=== PATIENT | male | born 1945 | race Caucasian/White ===

== ENCOUNTER 2018-06-06 18:20 | Emergency (ER) | payer MEDICARE, OTHER ==
[2018-06-06] MEDS ORDERED: IPRATROPIUM/ALBUTEROL 3 ML NEB INH STA (19:53)
--- NOTE | 2018-06-06 19:53 | ED Physician Documentation ---
PD HPI CHEST PAIN - Stated complaint Stated Complaint: BODY ACHES - Chief complaint Chief Complaint: Abd Pain - History obtained from History obtained from: Patient - History of Present Illness Timing - onset: Other (He had a Crohn's flare for about 4 days that ended 2 days ago with vomiting and diarrhea. He did take a little bit of steroids and got better. Now for the last 2 days he has had a cough and shortness of breath as well as chest tightness. He thinks he might have pneumonia. He has had sweats but no fevers.) Review of Systems Constitutional: reports: Fatigue, Sweats. denies: Fever, Chills Nose: denies: Rhinorrhea / runny nose, Congestion Cardiac: denies: Chest pain / pressure, Palpitations Respiratory: reports: Dyspnea, Cough PD PAST MEDICAL HISTORY - Past Medical History Past Medical History: Yes GI: Crohn's disease - Past Surgical History Past Surgical History: Yes General: Other Cardiovascular: AAA, Other - Present Medications Home Medications: Ambulatory Orders Medication Instructions Recorded Confirmed Aspirin Chewable [[place] 1 tab PO DAILY 06/06/18 06/06/18 Aspirin] Doxycycline Hyclate 100 mg PO BID #20 capsule 06/06/18 Ferrous Sulfate 1 tab PO DAILY 06/06/18 06/06/18 Lisinopril/Hydrochlorothiazide 1 tab PO DAILY 06/06/18 06/06/18 [Lisinopril-Hctz 20-25 mg Tab] [place]-3/Dha/Epa/Fish Oil [Fish Oil 1 cap PO DAILY 06/06/18 06/06/18 1,000 mg Softgel] Potassium Chloride 10 meq PO DAILY #5 tablet.er 06/06/18 predniSONE [Prednisone] 1 - 2 tab PO DAILY PRN 06/06/18 06/06/18 - Allergies Allergies/Adverse Reactions: Allergies Allergy/AdvReac Type Severity Reaction Status Date / Time No Known Drug Allergies Allergy Verified 06/06/18 19:27 - Social History Does the pt smoke?: Yes Smoking Status: Current every day smoker Does the pt drink ETOH?: No Does the pt have substance abuse?: No - Immunizations Immunizations are current?: Yes - POLST Patient has POLST: Yes PD ED PE NORMAL - Vitals Vital signs reviewed: Yes - General General: Alert and oriented X 3, No acute distress - HEENT HEENT: PERRL, EOMI - Neck Neck: Supple, no meningeal sign, No bony TTP - Cardiac Cardiac: RRR, No murmur - Respiratory Respiratory: Other (Tight throughout but nonlabored) - Abdomen Abdomen: Non tender - Back Back: No CVA TTP, No spinal TTP - Extremities Extremities: No edema, No calf tenderness / cord - Neuro Neuro: Alert and oriented X 3, Normal speech Results - Vitals Vitals: Vital Signs - 24 hr 06/06/18 06/06/18 06/06/18 19:01 20:07 20:12 Temperature 36.4 C L Heart Rate 65 55 L 56 L Respiratory 18 16 16 Rate Blood Pressure 136/63 H 139/70 H O2 Saturation 98 100 06/06/18 20:20 Temperature Heart Rate 56 L Respiratory 15 Rate Blood Pressure O2 Saturation Oxygen O2 Source Room air - EKG (time done) 2002 Rate: Rate (enter#) (54) Rhythm: NSR [place]: Normal Intervals: LBBB (incomplete) Ischemia: Q waves (small inferior), Non specific changes Computer interpretation: Agree with computer - Labs Labs: Laboratory Tests 06/06/18 06/06/18 06/06/18 20:05 20:05 20:05 WBC 16.5 H RBC 3.70 L Hgb 11.6 L Hct 33.5 L MCV 90.4 MCH 31.4 H MCHC 34.8 RDW 13.7 Plt Count 383 MPV 7.4 Neut # (Auto) 13.0 H Lymph # (Auto) 2.1 [place] # (Auto) 1.1 H Eos # (Auto) 0.2 Baso # (Auto) 0.1 Absolute Nucleated RBC 0.00 Band Neuts % (Manual) Not Reportable Abnorm Lymph % (Manual) Not Reportable Nucleated RBC % 0.0 Neutrophils # (Manual) Not Reportable Lymphocytes # (Manual) Not Reportable Monocytes # (Manual) Not Reportable Eosinophils # (Manual) Not Reportable Basophils # (Manual) Not Reportable Differential Comment MANUAL=AUTO DIFF Manual Slide Review Indicated Platelet Estimate NORMAL (130-450,000) Platelet Morphology NORMAL APPEARANCE RBC Morph Micro Appear 1+ ANISOCYTOSIS Sodium 131 L Potassium 2.6 L Chloride 96 L Carbon Dioxide 25 Anion Gap 10.0 BUN 34 H Creatinine 1.7 H Estimated GFR (MDRD) 40 L Glucose 100 Calcium 8.4 L Total Bilirubin 0.6 AST 30 ALT 11 Alkaline Phosphatase 63 Troponin I < 0.04 Total Protein 7.9 Albumin 3.3 Globulin 4.6 H Albumin/Globulin Ratio 0.7 L Lipase 37 PD MEDICAL DECISION MAKING - ED course ED course: This is a 72-year-old gentleman with recent Crohn's flare now resolved who presents with nonproductive cough and chest tightness which on examination seems most consistent with a COPD exacerbation although he has no formal diagnosis of this. He would like to avoid steroids as he has been on steroids recently. He did clear up after a DuoNeb here. His white blood cell count is elevated which could be from the COPD exacerbation, the Crohn's flare, or the recent steroid use. He has a mild prerenal azotemia with hypokalemia. He is taking oral fl uids well here and was advised to push fluids for the next few days and he was given oral potassium here as well as a short prescription for set potassium supplementation. Departure - Departure Disposition: 01 Home, Self Care Clinical Impression: Dehydration, Bronchitis Acute Crohn's disease Qualifiers: Digestive disease complication type: without complication Qualified Code(s): K50.90 - Crohn's disease, unspecified, without complications Condition: Good Record reviewed to determine appropriate education?: Yes Instructions: Disease Crohn Dc, ED Bronchitis Asthmatic Prescriptions: Doxycycline Hyclate 100 mg PO BID #20 capsule Potassium Chloride 10 meq PO DAILY #5 tablet.er Comments: As discussed drink plenty of fluids. Follow-up with your physician in 2-3 days for recheck. Return for any new or worsening symptoms.
[2018-06-06 20:15] LABS: BASOPHILS # (AUTO) 0.1 10^3/uL (0.0-0.1); BASOPHILS % (AUTO) 0.5 %; EOSINOPHILS # (AUTO) 0.2 10^3/uL (0.0-0.7); EOSINOPHILS % (AUTO) 1.3 %; HGB - HEMOGLOBIN 11.6 g/dL (14.0-18.0); LYMPHOCYTES # (AUTO) 2.1 10^3/uL (1.5-3.5); LYMPHOCYTES % (AUTO) 12.6 %; MEAN CORPUSCULAR HEMOGLOBIN 31.4 pg (27.0-31.0); MEAN CORPUSCULAR HGB CONC 34.8 g/dL (32.0-36.0); MEAN CORPUSCULAR VOLUME 90.4 fL (80.0-94.0); MEAN PLATELET VOLUME 7.4 fL (7.4-11.4); MONOCYTES # (AUTO) 1.1 10^3/uL (0.0-1.0); MONOCYTES % (AUTO) 6.9 %; NEUTROPHILS % (AUTO) 78.7 %; PLT - PLATELET COUNT 383 10^3/uL (130-450); RED CELL DISTRIBUTION WIDTH 13.7 % (12.0-15.0); WHITE BLOOD COUNT 16.5 x10^3/uL (4.8-10.8)
[2018-06-06 20:23] LABS: ALBUMIN 3.3 g/dL (3.2-5.5); ALBUMIN/GLOBULIN RATIO 0.7 (1.0-2.2); BILIRUBIN,TOTAL 0.6 mg/dL (0.2-1.0); CALCIUM 8.4 mg/dL (8.5-10.3); CREATININE 1.7 mg/dL (0.6-1.2); TOTAL PROTEIN 7.9 g/dL (6.7-8.2)
[2018-06-06] MEDS ORDERED: POTASSIUM BICARB 25 MEQ TABLET PO STA (20:43)
[2018-06-06 20:52] LABS: PLATELET MORPHOLOGY NORMAL APPEARANCE (NORMAL); RBC MORPHOLOGY (MULTIPLE) 1+ ANISOCYTOSIS (NORMAL)
[2018-06-06 20:57] LABS: PLATELET ESTIMATE, MANUAL NORMAL (130-450,000) (NORMAL)
[2018-06-06 20:58] LABS: DIFFERENTIAL COMMENT MANUAL=AUTO DIFF
--- NOTE | 2018-06-06 20:59 | XRAY Report ---
Reason: cough chest tight Procedure Date: 06/06/2018 Accession Number: [id number] / [id number] Procedure: XR - Chest 2 View X-Ray CPT Code: 96447 FULL RESULT: EXAM: CHEST RADIOGRAPHY EXAM DATE: 06/06/2018 08:25 PM. CLINICAL HISTORY: Cough chest tight. COMPARISON: None. TECHNIQUE: 2 views. FINDINGS: Lungs/Pleura: No dense consolidation. No large effusion or pneumothorax. No pulmonary edema. Mediastinum: Heart and mediastinal contours are unremarkable. Other: None. IMPRESSION: No acute radiographic pulmonary abnormalities. RADIA
[2018-06-06] MEDS ORDERED: DOXYCYCLINE 100 MG TABLET PO STA (21:01)
[2018-06-06 21:12] VITALS: BP 101/55
== END 2018-06-06 21:11 | disposition home or self-care (01) ==
LOC: ED 18:20
DX: E86.0 Dehydration (principal); J40 Bronchitis, not specified as acute or chronic; K50.90 Crohn's disease, unspecified, without complications; D72.829 Elevated white blood cell count, unspecified; I44.7 Left bundle-branch block, unspecified; F17.200 Nicotine dependence, unspecified, uncomplicated; Z79.82 Long term (current) use of aspirin
CPT/HCPCS: 36415; 71046; 80053; 83690; 84484; 85025; 93005; 94640; 99283; 99284; A9270

== ENCOUNTER 2018-06-16 08:00 | Outpatient (CLI) | payer MEDICARE, OTHER ==
[2018-06-16 12:53] LABS: BASOPHILS # (AUTO) 0.1 10^3/uL (0.0-0.1); BASOPHILS % (AUTO) 0.5 %; EOSINOPHILS # (AUTO) 0.2 10^3/uL (0.0-0.7); EOSINOPHILS % (AUTO) 1.8 %; HGB - HEMOGLOBIN 10.7 g/dL (14.0-18.0); LYMPHOCYTES # (AUTO) 1.6 10^3/uL (1.5-3.5); LYMPHOCYTES % (AUTO) 15.2 %; MEAN CORPUSCULAR HEMOGLOBIN 31.5 pg (27.0-31.0); MEAN CORPUSCULAR HGB CONC 35.2 g/dL (32.0-36.0); MEAN CORPUSCULAR VOLUME 89.6 fL (80.0-94.0); MONOCYTES # (AUTO) 0.9 10^3/uL (0.0-1.0); MONOCYTES % (AUTO) 8.1 %; NEUTROPHILS % (AUTO) 74.4 %; PLT - PLATELET COUNT 355 10^3/uL (130-450); RED BLOOD COUNT 3.41 10^6/uL (4.70-6.10); RED CELL DISTRIBUTION WIDTH 14.3 % (12.0-15.0); WHITE BLOOD COUNT 10.8 x10^3/uL (4.8-10.8)
[2018-06-16 13:34] LABS: ALBUMIN 2.8 g/dL (3.2-5.5); ALBUMIN/GLOBULIN RATIO 0.8 (1.0-2.2); ALKALINE PHOSPHATASE 70 IU/L (42-121); ALT ALANINE AMINOTRANSFERASE < 10 IU/L (10-60); AST ASPARTATE AMINOTRANSFERASE 21 IU/L (10-42); BILIRUBIN,TOTAL 0.5 mg/dL (0.2-1.0); BUN - BLOOD UREA NITROGEN 18 mg/dL (6-20); CALCIUM 8.2 mg/dL (8.5-10.3); CARBON DIOXIDE - CO2 27 mmol/L (21-32); CHLORIDE 102 mmol/L (101-111); CREATININE 1.3 mg/dL (0.6-1.2); GFR - MDRD 54 (>89); GLUCOSE 94 mg/dL (70-100); SODIUM 137 mmol/L (135-145); TOTAL PROTEIN 6.5 g/dL (6.7-8.2)
== END 2018-06-16 23:59 | disposition home or self-care (01) ==
LOC: LAB.WCP 08:00
PROVIDERS: ATTEND Physician Assistant Medical
DX: I10 Essential (primary) hypertension (principal); D50.9 Iron deficiency anemia, unspecified
CPT/HCPCS: 36415; 80053; 85025

== ENCOUNTER 2018-08-04 08:00 | Outpatient (CLI) | payer MEDICARE, OTHER ==
[2018-08-04 19:14] LABS: CALCIUM 8.5 mg/dL (8.5-10.3); CREATININE 1.2 mg/dL (0.6-1.2)
== END 2018-08-04 23:59 ==
LOC: LAB.WCP 08:00
PROVIDERS: ATTEND Physician Assistant Medical
DX: E87.6 Hypokalemia (principal)
CPT/HCPCS: 36415; 80048

== ENCOUNTER 2018-09-12 08:00 | Outpatient (CLI) | payer MEDICARE, OTHER ==
[2018-09-12 19:44] LABS: CALCIUM 8.6 mg/dL (8.5-10.3); CREATININE 1.3 mg/dL (0.6-1.2)
== END 2018-09-12 23:59 | disposition home or self-care (01) ==
LOC: LAB.WCP 08:00
PROVIDERS: ATTEND Physician Assistant Medical
DX: E87.6 Hypokalemia (principal)
CPT/HCPCS: 36415; 80048

== ENCOUNTER 2019-07-11 05:19 | Emergency (ER) | payer MEDICARE, OTHER ==
[2019-07-11 05:29] VITALS: BP 138/61
== END 2019-07-11 05:29 | disposition left against medical advice (07) ==
LOC: ED 05:19
DX: Z53.21 Procedure and treatment not carried out due to patient leaving prior to being seen by health care provider (principal)

== ENCOUNTER 2019-07-27 07:43 | Outpatient (CLI) | payer MEDICARE, OTHER ==
--- NOTE | 2019-07-27 15:38 | XRAY Report ---
Reason: PNEUMONIA Procedure Date: 07/27/2019 Accession Number: [id number] / [id number] Procedure: WCP - Chest 2 View X-Ray CPT Code: 21600 Final Report FULL RESULT: EXAM: CHEST RADIOGRAPHY 2 VIEWS EXAM DATE: 07/27/2019. CLINICAL HISTORY: Pneumonia. Cough, congestion, wheezing and shortness of breath for 5 days. COMPARISON: PA and lateral chest 06/06/2018. TECHNIQUE: PA and lateral views. FINDINGS: Lungs/Pleura: Normal vasculature. The lungs are hyperinflated, greater than on the prior examination. Interstitial and alveolar infiltrate posterior in the inferior right lower lobe, and to a lesser extent in the medial inferior left lower lobe.. No pleural fluid or pneumothorax. Mediastinum: Normal cardiac and mediastinal contours. Atherosclerosis of the aorta. Bones: Flowing bridging osteophytes in the thoracic spine consistent with diffuse idiopathic skeletal hyperostosis. IMPRESSION: Right lower lobe and left lower lobe infiltrate consistent with pneumonia. Recommend follow-up chest radiography in 2-3 weeks. Pulmonary hyperinflation, greater than on 06/06/2018, most likely from bronchospasm. RADIA
== END 2019-07-27 23:59 | disposition home or self-care (01) ==
LOC: DI.WCP 07:43
PROVIDERS: ATTEND Physician Assistant Medical
DX: J18.9 Pneumonia, unspecified organism (principal)
CPT/HCPCS: 71046

== ENCOUNTER 2019-09-12 10:31 | Emergency (ER) | payer MEDICARE, OTHER ==
[2019-09-12 11:17] LABS: BASOPHILS % (AUTO) 0.5 %; EOSINOPHILS # (AUTO) 0.1 10^3/uL (0.0-0.7); EOSINOPHILS % (AUTO) 1.5 %; HGB - HEMOGLOBIN 8.9 g/dL (14.0-18.0); LYMPHOCYTES # (AUTO) 1.7 10^3/uL (1.5-3.5); MEAN CORPUSCULAR HEMOGLOBIN 29.1 pg (27.0-31.0); MEAN CORPUSCULAR HGB CONC 31.1 g/dL (32.0-36.0); MEAN CORPUSCULAR VOLUME 93.5 fL (80.0-94.0); MEAN PLATELET VOLUME 9.8 fL (7.4-11.4); MONOCYTES # (AUTO) 0.5 10^3/uL (0.0-1.0); MONOCYTES % (AUTO) 7.5 %; NEUTROPHILS # (AUTO) 3.9 10^3/uL (1.5-6.6); NEUTROPHILS % (AUTO) 63.2 %; PLT - PLATELET COUNT 315 10^3/uL (130-450); RED BLOOD COUNT 3.06 10^6/uL (4.70-6.10); RED CELL DISTRIBUTION WIDTH 14.6 % (12.0-15.0); WHITE BLOOD COUNT 6.1 x10^3/uL (4.8-10.8)
--- NOTE | 2019-09-12 11:19 | ED Physician Documentation ---
History of Present Illness - Stated complaint Stated Complaint: HIGH BP/SENT BY - Chief complaint Chief Complaint: General - History obtained from History obtained from: Patient - History of Present Illness Timing: Today - Additonal information Additional information: 74-year-old male who checks his blood pressure twice a day has had an elevated reading he called his doctor and discussed the findings with her and she recommended to come to the emergency department for evaluation. I have been able to talk to the patient's doctor in her interpretation of what the patient told her was that his heart rate was 175 and his blood pressure was 90 and she has prior experience with him having hypotension with pneumonia recently and she became quite concerned thought she might be in atrial fibrillation with rapid ventricular response and asked him to come to the emergency department. The patient states that he does not feel particularly poorly in any way and feels that he is resolved his pneumonia. Review of Systems Constitutional: denies: Fever, Chills, Myalgias Eyes: denies: Decreased vision Ears: denies: Ear pain Nose: denies: Rhinorrhea / runny nose, Congestion Throat: denies: Sore throat Cardiac: denies: Chest pain / pressure, Palpitations Respiratory: reports: Cough. denies: Dyspnea GI: denies: Abdominal Pain, Nausea, Vomiting : denies: Dysuria, Frequency PD PAST MEDICAL HISTORY - Past Medical History Cardiovascular: Hypertension, Coronary artery disease Respiratory: None Neuro: None Endocrine/Autoimmune: None GI: Crohn's disease : None HEENT: None Psych: None Musculoskeletal: None Derm: None - Past Surgical History Past Surgical History: Yes General: Other Cardiovascular: AAA, Other HEENT: Tonsil/Adenoidectomy - Present Medications Home Medications: Ambulatory Orders Medication Instructions Recorded Confirmed Aspirin Chewable [[place] 1 tab PO DAILY 06/06/18 09/12/19 Aspirin] Ferrous Sulfate 1 tab PO DAILY 06/06/18 09/12/19 [place]-3/Dha/Epa/Fish Oil [Fish Oil 1 cap PO DAILY 06/06/18 09/12/19 1,000 mg Softgel] Potassium Chloride 10 meq PO DAILY #5 tablet.er 06/06/18 09/12/19 predniSONE [Prednisone] 1 - 2 tab PO DAILY PRN 06/06/18 09/12/19 - Allergies Allergies/Adverse Reactions: Allergies Allergy/AdvReac Type Severity Reaction Status Date / Time No Known Drug Allergies Allergy Verified 09/12/19 10:39 - Social History Does the pt smoke?: Yes Smoking Status: Current every day smoker Does the pt drink ETOH?: No Does the pt have substance abuse?: No - Immunizations Immunizations are current?: Yes - POLST Patient has POLST: Yes PD ED PE NORMAL - Vitals Vital signs reviewed: Yes (hypertensive ) - General General: Alert and oriented X 3, No acute distress, Well developed/nourished - HEENT HEENT: Atraumatic, PERRL, EOMI - Neck Neck: Supple, no meningeal sign, No bony TTP - Cardiac Cardiac: RRR, No murmur - Respiratory Respiratory: No respiratory distress, Other (bibasilar wheezes clear with deep breathing) - Abdomen Abdomen: Soft, Non tender - Back Back: No CVA TTP, No spinal TTP - Derm Derm: Normal color, Warm and dry, No rash - Extremities Extremities: No deformity, No edema - Neuro Neuro: Alert and oriented X 3, hotel valet attendant 2-12 intact, No motor deficit, No sensory deficit, Normal speech Eye Opening: Spontaneous Motor: Obeys Commands Verbal: Oriented GCS Score: 15 - Psych Psych: Normal mood, Normal affect Results - Vitals Vitals: Vital Signs - 24 hr 09/12/19 09/12/19 09/12/19 10:39 10:51 11:19 Temperature 36.6 C Heart Rate 65 63 58 L Respiratory 18 20 16 Rate Blood Pressure 186/96 H 185/82 H 188/95 H O2 Saturation 100 99 99 09/12/19 09/12/19 12:12 12:36 Temperature 36.6 C Heart Rate 58 L 60 Respiratory 16 16 Rate Blood Pressure 170/84 H 180/74 H O2 Saturation 100 99 Oxygen O2 Source Room air - EKG (time done) 1041 Rate: Rate (enter#) (67) Rhythm: NSR Ischemia: Q waves Compare to prior EKG: Changed from prior EKG (SPT 06-06-2018 the lateral T wave flattening has resovled. ) Computer interpretation: Agree with computer - Labs Labs: Laboratory Tests 09/12/19 09/12/19 09/12/19 10:56 10:56 10:56 WBC 6.1 RBC 3.06 L Hgb 8.9 L Hct 28.6 L MCV 93.5 MCH 29.1 MCHC 31.1 L RDW 14.6 Plt Count 315 MPV 9.8 Neut # (Auto) 3.9 Lymph # (Auto) 1.7 [place] # (Auto) 0.5 Eos # (Auto) 0.1 Baso # (Auto) 0.0 Absolute Nucleated RBC 0.00 Nucleated RBC % 0.0 Sodium 139 Potassium 2.9 L Chloride 107 Carbon Dioxide 24 Anion Gap 8.0 BUN 13 Creatinine 1.2 Estimated GFR (MDRD) 59 L Glucose 101 H Calcium 8.1 L Total Bilirubin 0.4 AST 20 ALT < 10 L Alkaline Phosphatase 89 Troponin I High Sens 14.3 Total Protein 6.7 Albumin 3.0 L Globulin 3.7 Albumin/Globulin Ratio 0.8 L Lipase 28 - Rads (name of study) chest Radiology: Prelim report reviewed (Impression: 1. Normal lung volumes and heart size. 2 No evidence of focal infiltrate.3 Costophrenic sulcus blunting could represent small effusions. 4 There is no evidence of pneumothorax.), EMP read indepedently, See rad report Procedures - IVC sono (time) 1050 Bedside IVC sono: IVC measures (cm) (1.76), Euvolemia PD MEDICAL DECISION MAKING - ED course Complexity details: reviewed results, re-evaluated patient, considered differential, d/w patient, d/w field sales consultant (Chelita Dias concerned re: patient callled with heart rate of 175 and bp of 90. Has had recent pneumonia and had low blood pressure then ) ED course: 74-year-old male who is essentially asymptomatic with hypertension has come to the emergency department for evaluation of direction of his provider. There was a misunderstanding between the provider and the patient about why he was sent here provider thought he had rapid A. fib the patient had elevated blood pressure. The patient does acknowledge excessive salt intake and especially last night as well. So we discussed treatment of hypertension and the initial treatment to be done with lifestyle modification including reduction in salt intake and increasing activity as well as avoiding alcohol and tobacco. Departure - Departure Disposition: 01 Home, Self Care Clinical Impression: Hypokalemia Hypertension Qualifiers: Hypertension type: unspecified Qualified Code(s): I10 - Essential (primary) hypertension Condition: Stable Instructions: ED Hypertension Poss, ED Diet High Potassium Follow-Up: Chelita Dias PA-C [Primary Care Provider] - Comments: Today your blood pressure is elevated and the recommendation is to reduce the salt in your diet, increase your level of activity and avoid alcohol and tobacco. Follow-up with your primary care doctor for a blood pressure recheck in the next 2 weeks. If your blood pressure spike is due to a heavy salt load you should notice a decrease in your blood pressure over the next 3 to 4 days. Discharge Date/Time: 09/12/19 12:37
[2019-09-12 11:29] LABS: ALBUMIN/GLOBULIN RATIO 0.8 (1.0-2.2); ALKALINE PHOSPHATASE 89 IU/L (42-121); ALT ALANINE AMINOTRANSFERASE < 10 IU/L (10-60); AST ASPARTATE AMINOTRANSFERASE 20 IU/L (10-42); BILIRUBIN,TOTAL 0.4 mg/dL (0.2-1.0); BUN - BLOOD UREA NITROGEN 13 mg/dL (6-20); CALCIUM 8.1 mg/dL (8.5-10.3); CARBON DIOXIDE - CO2 24 mmol/L (21-32); CHLORIDE 107 mmol/L (101-111); CREATININE 1.2 mg/dL (0.6-1.2); GLUCOSE 101 mg/dL (70-100); LIPASE 28 U/L (22-51); SODIUM 139 mmol/L (135-145); TOTAL PROTEIN 6.7 g/dL (6.7-8.2)
--- NOTE | 2019-09-12 11:48 | XRAY Report ---
Reason: cough recent pneuonia Procedure Date: 09/12/2019 Accession Number: [id number] / [id number] Procedure: XR - Chest 2 View X-Ray CPT Code: 29470 Final Report FULL RESULT: EXAM: CHEST RADIOGRAPHY EXAM DATE: 09/12/2019 11:28 AM. CLINICAL HISTORY: Cough recent pneumonia. COMPARISON: CHEST 2 VIEW 07/27/2019 8:18 AM. TECHNIQUE: 2 views. FINDINGS: Lungs/Pleura: Lungs are well expanded. Interval decrease in opacity within the posterior chest. This suggests resolution of infiltrate. There is costophrenic sulcus blunting which may represent small effusions. There is no evidence of pneumothorax. Mediastinum: Heart and mediastinal contours are unremarkable. Other: None. IMPRESSION: 1. Normal lung volumes and heart size. 2. No evidence of focal infiltrate. 3. Costophrenic sulcus blunting could represent small effusions. 4. There is no evidence of pneumothorax. RADIA
[2019-09-12] MEDS ORDERED: POTASSIUM CHLORIDE 20 MEQ TABLET PO STA (12:00)
[2019-09-12 12:37] VITALS: BP 180/74
== END 2019-09-12 12:37 | disposition home or self-care (01) ==
LOC: ED 10:31
DX: I10 Essential (primary) hypertension (principal); E87.6 Hypokalemia; F17.200 Nicotine dependence, unspecified, uncomplicated
CPT/HCPCS: 36415; 71046; 80053; 83690; 84484; 85025; 93005; 99283; 99284; A9270

== ENCOUNTER 2019-09-21 14:43 | Outpatient (CLI) | payer MEDICARE, OTHER ==
--- NOTE | 2019-09-22 11:45 | Ultrasound Report ---
Reason: DYSPHAGIA Procedure Date: 09/21/2019 Accession Number: [id number] / [id number] Procedure: US - Head or Neck Soft Tissue CPT Code: Final Report FULL RESULT: EXAM: THYROID ULTRASOUND EXAM DATE: 09/21/2019 03:37 PM. CLINICAL HISTORY: Dysphagia. COMPARISON: None. TECHNIQUE: Real time sonographic imaging of the thyroid was performed by the assembly and packing supervisor. Multiple public utilities sales representative static images were saved for review. FINDINGS: THYROID GLAND: Right Lobe: 3.6 x 1.9 x 1.4 cm, volume 5 cc. Normal background echotexture. Right Lobe Nodules: None. Left Lobe: 2.9 x 1.2 x 1.4 cm, volume 2.5 cc. Normal background echotexture. Left Lobe Nodules: None. Isthmus: 0.3 cm AP. Normal background echotexture. Isthmic Nodules: None. LYMPH NODES: No adenopathy demonstrated in the central or lateral compartment. OTHER: None. IMPRESSION: Normal appearance of the thyroid parenchyma. No nodules identified. Management recommendations are based on 2015 [place] [employer] Management Guidelines for Adult Patients with Thyroid Nodules and Differentiated Thyroid Cancer. RADIA
== END 2019-09-21 14:44 | disposition home or self-care (01) ==
LOC: DI 14:43
PROVIDERS: ATTEND Physician Assistant Medical
DX: R13.10 Dysphagia, unspecified (principal)
CPT/HCPCS: 76536

== ENCOUNTER 2019-11-20 17:59 | Outpatient (CLI) | payer MEDICARE, OTHER | END 2019-11-20 18:00 | disposition critical access hospital (66) | LOC: EMS 17:59 | PROVIDERS: ATTEND Surgery | DX: S09.90XA Unspecified injury of head, initial encounter (principal); Y04.2XXA Assault by strike against or bumped into by another person, initial encounter; W18.39XA Other fall on same level, initial encounter; Y92.098 Other place in other non-institutional residence as the place of occurrence of the external cause | CPT/HCPCS: A0425; A0429 ==

== ENCOUNTER 2019-11-20 18:22 | Emergency (ER) | payer MEDICARE, OTHER ==
[2019-11-20] MEDS ORDERED: TETANUS/DIPHTHERIA/PERTUSSIS 0.5 ML SYRINGE IM ONE (18:28)
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
--- NOTE | 2019-11-20 19:18 | CT Report ---
PROCEDURE: HEAD WO INDICATIONS: head injury TECHNIQUE: Noncontrast 4.5 mm thick angled axial sections acquired from the foramen magnum to the vertex. For r adiation dose reduction, the following was used: automated exposure control, adjustment of mA and/or kV according to patient size. COMPARISON: None. FINDINGS: Image quality: Excellent. The ventricular system and cortical sulci demonstrate atrophy, consistent for patient's stated age. There are areas of hypodensity in the periventricular and subcortical white matter. There is no acut e intra or extra-axial fluid collection. No acute hemorrhage, mass lesion or midline shift. Brainst em is unremarkable. Globes are symmetrical. Sinuses are aerated. Osseous structures are intact. Right frontal scalp hemat valeriano is present. IMPRESSION: 1. No acute intracranial process. 2. Moderate atrophy and chronic microvascular ischemic changes. Reviewed by: Cecile Epps MD on 11/20/2019 7:16 PM PDT Approved by: Cecile Epps MD on 11/20/2019 7:16 PM PDT Station ID: [id number]
--- NOTE | 2019-11-20 19:19 | CT Report ---
PROCEDURE: CERVICAL SPINE WO INDICATIONS: head injury TECHNIQUE: Noncontrast 3 mm thick sections acquired from the skull base to the T4 level. Sagittal and coronal r eformats were then constructed. For radiation dose reduction, the following was used: automated exp osure control, adjustment of mA and/or kV according to patient size. COMPARISON: CT head 11/20/2019 FINDINGS: Image quality: Excellent. Bones: No fractures or dislocations. Visualized superior ribs are intact. Multilevel moderate to s evere degenerative changes most notable at C5-6. Soft tissues: Prevertebral soft tissues are normal in thickness. No paravertebral hematomas. No ap ical pneumothoraces. IMPRESSION: 1. No visualized fracture or dislocation. Reviewed by: Cecile Epps MD on 11/20/2019 7:18 PM PDT Approved by: Cecile Epps MD on 11/20/2019 7:18 PM PDT Station ID: [id number]
[2019-11-20 19:38] VITALS: BP 154/72
== END 2019-11-20 19:51 | disposition home or self-care (01) ==
LOC: EDUNIT# → ED 18:22
DX: S09.90XA Unspecified injury of head, initial encounter (principal); S00.81XA Abrasion of other part of head, initial encounter; Y04.2XXA Assault by strike against or bumped into by another person, initial encounter; Z23 Encounter for immunization; I10 Essential (primary) hypertension; M50.322 Other cervical disc degeneration at C5-C6 level; F17.200 Nicotine dependence, unspecified, uncomplicated; Z79.82 Long term (current) use of aspirin
CPT/HCPCS: 70450; 72125; 90471; 99282; 99284

== ENCOUNTER 2020-03-05 07:18 | Outpatient (CLI) | payer MEDICARE, OTHER ==
[2020-03-05 12:27] LABS: ALBUMIN 3.5 g/dL (3.2-5.5); ALBUMIN/GLOBULIN RATIO 0.9 (1.0-2.2); ALKALINE PHOSPHATASE 72 IU/L (42-121); ALT ALANINE AMINOTRANSFERASE < 10 IU/L (10-60); AST ASPARTATE AMINOTRANSFERASE 15 IU/L (10-42); BILIRUBIN,TOTAL 0.6 mg/dL (0.2-1.0); BUN - BLOOD UREA NITROGEN 20 mg/dL (6-20); CALCIUM 8.8 mg/dL (8.5-10.3); CARBON DIOXIDE - CO2 23 mmol/L (21-32); CHLORIDE 107 mmol/L (101-111); CHOL/HDL RATIO 4.8 (<5.0); CHOLESTEROL 144 mg/dL; CREATININE 1.3 mg/dL (0.6-1.2); GLUCOSE 91 mg/dL (70-100); HDL CHOLESTEROL 30 mg/dL; LDL CHOLESTEROL,CALCULATED 81 mg/dL; LDL/HDL RATIO 2.7 (<3.6); SODIUM 138 mmol/L (135-145); TOTAL PROTEIN 7.4 g/dL (6.7-8.2); VLDL CHOLESTEROL 33 mg/dL
[2020-03-05 12:31] LABS: BASOPHILS % (AUTO) 0.4 %; EOSINOPHILS # (AUTO) 0.1 10^3/uL (0.0-0.7); LYMPHOCYTES # (AUTO) 1.6 10^3/uL (1.5-3.5); LYMPHOCYTES % (AUTO) 14.7 %; MEAN CORPUSCULAR HEMOGLOBIN 30.7 pg (27.0-31.0); MEAN CORPUSCULAR HGB CONC 31.7 g/dL (32.0-36.0); MEAN CORPUSCULAR VOLUME 96.6 fL (80.0-94.0); MONOCYTES # (AUTO) 0.6 10^3/uL (0.0-1.0); MONOCYTES % (AUTO) 5.9 %; NEUTROPHILS # (AUTO) 8.3 10^3/uL (1.5-6.6); NEUTROPHILS % (AUTO) 77.3 %; PLT - PLATELET COUNT 343 10^3/uL (130-450); RED BLOOD COUNT 3.26 10^6/uL (4.70-6.10); RED CELL DISTRIBUTION WIDTH 15.3 % (12.0-15.0); WHITE BLOOD COUNT 10.8 x10^3/uL (4.8-10.8)
[2020-03-06 13:56] LABS: HEPATITIS C ANTIBODY NON-REACTIVE (NON-REACTIVE)
== END 2020-03-05 23:59 | disposition home or self-care (01) ==
LOC: LAB.WCP 07:18
PROVIDERS: ATTEND Physician Assistant Medical
DX: D50.9 Iron deficiency anemia, unspecified (principal); I25.10 Atherosclerotic heart disease of native coronary artery without angina pectoris; Z11.59 Encounter for screening for other viral diseases
CPT/HCPCS: 36415; 80053; 80061; 82728; 83721; 85025; 86803

== ENCOUNTER 2020-03-17 08:45 | Outpatient (CLI) | payer MEDICARE, OTHER ==
--- NOTE | 2020-03-17 17:01 | Ultrasound Report ---
PROCEDURE: Retroperitoneal Limited INDICATIONS: AAA, SMOKER TECHNIQUE: Real time scanning was performed of the aorta and iliac arteries, with image documentatio n. COMPARISON: Prior ultrasound, 08/21/2010, CT 01/17/2009 FINDINGS: Aorta: Proximal aortic diameter measures 2.7 x 2.6 cm, prior 2.6 x 2.6 centimeters. Mid-aorta measu res 3.3 x 4 cm, prior 2.6 x 2.7 cm. Distal aortic diameter is 3.4 x 3.5 cm, prior 3.2 x 2.7 cm. Iliac arteries: Right common iliac artery measures 1.7 x 1.5 cm, prior 1.3 x 1.3 cm. Left common il iac artery measures 1.7 x 1.4 cm, prior 1.4 x 1.5 cm. An aortobiiliac stent graft is seen. 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 Please consider a follow-up CT angiogram for further evaluation, assuming that there is no contraindi cation. Reviewed by: Nathan Reyes MD on 03/17/2020 3:59 PM [id number] Approved by: Nathan Reyes MD on 03/17/2020 3:59 PM MARIANNE Station ID: [id number]
== END 2020-03-17 08:46 | disposition home or self-care (01) ==
LOC: DI 08:45
PROVIDERS: ATTEND Physician Assistant Medical
DX: I71.4 Abdominal aortic aneurysm, without rupture (principal)
CPT/HCPCS: 76775

== ENCOUNTER 2020-10-10 08:00 | Outpatient (CLI) | payer MEDICARE, OTHER ==
[2020-10-10 12:09] LABS: BASOPHILS % (AUTO) 0.4 %; EOSINOPHILS # (AUTO) 0.2 10^3/uL (0.0-0.7); EOSINOPHILS % (AUTO) 2.3 %; HCT - HEMATOCRIT 32.8 % (42.0-52.0); HGB - HEMOGLOBIN 9.9 g/dL (14.0-18.0); LYMPHOCYTES # (AUTO) 1.5 10^3/uL (1.5-3.5); LYMPHOCYTES % (AUTO) 16.4 %; MEAN CORPUSCULAR HEMOGLOBIN 29.2 pg (27.0-31.0); MEAN CORPUSCULAR HGB CONC 30.2 g/dL (32.0-36.0); MEAN CORPUSCULAR VOLUME 96.8 fL (80.0-94.0); MEAN PLATELET VOLUME 9.8 fL (7.4-11.4); MONOCYTES # (AUTO) 0.7 10^3/uL (0.0-1.0); MONOCYTES % (AUTO) 7.8 %; NEUTROPHILS # (AUTO) 6.6 10^3/uL (1.5-6.6); NEUTROPHILS % (AUTO) 72.3 %; PLT - PLATELET COUNT 342 10^3/uL (130-450); RED BLOOD COUNT 3.39 10^6/uL (4.70-6.10); RED CELL DISTRIBUTION WIDTH 14.2 % (12.0-15.0); WHITE BLOOD COUNT 9.2 x10^3/uL (4.8-10.8)
[2020-10-10 12:31] LABS: ALBUMIN 3.6 g/dL (3.2-5.5); ALBUMIN/GLOBULIN RATIO 0.9 (1.0-2.2); ALKALINE PHOSPHATASE 88 IU/L (42-121); ALT ALANINE AMINOTRANSFERASE < 10 IU/L (10-60); AST ASPARTATE AMINOTRANSFERASE 16 IU/L (10-42); BILIRUBIN,TOTAL 0.5 mg/dL (0.2-1.0); BUN - BLOOD UREA NITROGEN 24 mg/dL (6-20); CALCIUM 8.7 mg/dL (8.5-10.3); CARBON DIOXIDE - CO2 19 mmol/L (21-32); CHLORIDE 98 mmol/L (101-111); CHOL/HDL RATIO 5.6 (<5.0); CHOLESTEROL 157 mg/dL; CREATININE 1.5 mg/dL (0.6-1.2); GFR - MDRD 46 (>89); GLUCOSE 101 mg/dL (70-100); HDL CHOLESTEROL 28 mg/dL; LDL CHOLESTEROL,CALCULATED 97 mg/dL; LDL/HDL RATIO 3.5 (<3.6); POTASSIUM 3.7 mmol/L (3.5-5.0); SODIUM 131 mmol/L (135-145); TOTAL PROTEIN 7.5 g/dL (6.7-8.2); TRIGLYCERIDES 158 mg/dL; VLDL CHOLESTEROL 32 mg/dL
== END 2020-10-10 23:59 | disposition home or self-care (01) ==
LOC: LAB.WCP 08:00
PROVIDERS: ATTEND Physician Assistant Medical
DX: E78.5 Hyperlipidemia, unspecified (principal); D50.9 Iron deficiency anemia, unspecified
CPT/HCPCS: 36415; 80053; 80061; 82728; 83721; 85025

== ENCOUNTER 2021-04-08 13:29 | Outpatient (CLI) | payer MEDICARE, OTHER ==
[2021-04-08 17:49] LABS: BASOPHILS # (AUTO) 0.1 10^3/uL (0.0-0.1); BASOPHILS % (AUTO) 0.6 %; EOSINOPHILS # (AUTO) 0.2 10^3/uL (0.0-0.7); EOSINOPHILS % (AUTO) 2.2 %; HCT - HEMATOCRIT 31.6 % (42.0-52.0); HGB - HEMOGLOBIN 10.1 g/dL (14.0-18.0); LYMPHOCYTES # (AUTO) 1.9 10^3/uL (1.5-3.5); LYMPHOCYTES % (AUTO) 19.4 %; MEAN CORPUSCULAR HEMOGLOBIN 30.5 pg (27.0-31.0); MEAN CORPUSCULAR VOLUME 95.5 fL (80.0-94.0); MEAN PLATELET VOLUME 10.1 fL (7.4-11.4); MONOCYTES # (AUTO) 0.8 10^3/uL (0.0-1.0); MONOCYTES % (AUTO) 7.7 %; NEUTROPHILS # (AUTO) 6.8 10^3/uL (1.5-6.6); NEUTROPHILS % (AUTO) 69.5 %; PLT - PLATELET COUNT 364 10^3/uL (130-450); RED BLOOD COUNT 3.31 10^6/uL (4.70-6.10); RED CELL DISTRIBUTION WIDTH 14.4 % (12.0-15.0); WHITE BLOOD COUNT 9.8 x10^3/uL (4.8-10.8)
[2021-04-08 18:06] LABS: CALCIUM 8.3 mg/dL (8.5-10.3); CREATININE 1.6 mg/dL (0.6-1.2)
== END 2021-04-08 23:59 | disposition home or self-care (01) ==
LOC: LAB.WCP 13:29
PROVIDERS: ATTEND Physician Assistant Medical
DX: I10 Essential (primary) hypertension (principal); D50.9 Iron deficiency anemia, unspecified
CPT/HCPCS: 36415; 80048; 82728; 85025

== ENCOUNTER 2021-05-13 10:23 | Outpatient (CLI) | payer MEDICARE, OTHER ==
[2021-05-13 18:24] LABS: CALCIUM 8.2 mg/dL (8.5-10.3); CREATININE 1.6 mg/dL (0.6-1.2); POTASSIUM 3.3 mmol/L (3.5-5.0)
== END 2021-05-13 23:59 | disposition home or self-care (01) ==
LOC: LAB.WCP 10:23
PROVIDERS: ATTEND Physician Assistant Medical
DX: E87.6 Hypokalemia (principal)
CPT/HCPCS: 36415; 80048

== ENCOUNTER 2022-08-27 10:55 | Outpatient (CLI) | payer MEDICARE, OTHER ==
[2022-08-27 18:03] LABS: BASOPHILS # (AUTO) 0.1 10^3/uL (0.0-0.1); BASOPHILS % (AUTO) 0.7 %; EOSINOPHILS # (AUTO) 0.3 10^3/uL (0.0-0.7); EOSINOPHILS % (AUTO) 3.2 %; HCT - HEMATOCRIT 36.8 % (42.0-52.0); HGB - HEMOGLOBIN 11.4 g/dL (14.0-18.0); LYMPHOCYTES # (AUTO) 1.8 10^3/uL (1.5-3.5); LYMPHOCYTES % (AUTO) 22.3 %; MEAN CORPUSCULAR VOLUME 93.6 fL (80.0-94.0); MEAN PLATELET VOLUME 9.6 fL (7.4-11.4); MONOCYTES # (AUTO) 0.7 10^3/uL (0.0-1.0); MONOCYTES % (AUTO) 8.5 %; NEUTROPHILS # (AUTO) 5.3 10^3/uL (1.5-6.6); NEUTROPHILS % (AUTO) 64.7 %; PLT - PLATELET COUNT 372 10^3/uL (130-450); RED BLOOD COUNT 3.93 10^6/uL (4.70-6.10); RED CELL DISTRIBUTION WIDTH 14.6 % (12.0-15.0); WHITE BLOOD COUNT 8.1 x10^3/uL (4.8-10.8)
[2022-08-27 18:22] LABS: ALBUMIN 3.3 g/dL (3.2-5.5); ALBUMIN/GLOBULIN RATIO 0.8 (1.0-2.2); ALKALINE PHOSPHATASE 92 IU/L (42-121); ALT ALANINE AMINOTRANSFERASE < 10 IU/L (10-60); AST ASPARTATE AMINOTRANSFERASE 19 IU/L (10-42); BILIRUBIN,TOTAL 0.3 mg/dL (0.2-1.0); BUN - BLOOD UREA NITROGEN 13 mg/dL (6-20); CALCIUM 8.4 mg/dL (8.5-10.3); CARBON DIOXIDE - CO2 28 mmol/L (21-32); CHLORIDE 107 mmol/L (101-111); CHOL/HDL RATIO 4.7 (<5.0); CHOLESTEROL 151 mg/dL; CREATININE 1.5 mg/dL (0.6-1.2); GFR - MDRD 45 (>89); GLUCOSE 112 mg/dL (70-100); HDL CHOLESTEROL 32 mg/dL; LDL CHOLESTEROL,CALCULATED 88 mg/dL; LDL/HDL RATIO 2.8 (<3.6); POTASSIUM 3.9 mmol/L (3.5-5.0); SODIUM 139 mmol/L (135-145); TOTAL PROTEIN 7.7 g/dL (6.7-8.2); TRIGLYCERIDES 154 mg/dL; VLDL CHOLESTEROL 31 mg/dL
== END 2022-08-27 10:56 | disposition home or self-care (01) ==
LOC: LAB.N 10:55
PROVIDERS: ATTEND Physician Assistant Medical
DX: E78.5 Hyperlipidemia, unspecified (principal); D50.9 Iron deficiency anemia, unspecified
CPT/HCPCS: 36415; 80053; 80061; 82728; 83721; 85025

== ENCOUNTER 2022-10-08 08:00 | Outpatient (CLI) | payer MEDICARE, OTHER | END 2022-10-08 23:59 | disposition home or self-care (01) | LOC: LAB.WCP 08:00 | PROVIDERS: ATTEND Family Medicine | DX: L03.90 Cellulitis, unspecified (principal) | CPT/HCPCS: 87070; 87077; 87101; 87205 ==

== ENCOUNTER 2022-10-08 10:52 | Outpatient (CLI) | payer MEDICARE, OTHER | END 2022-10-08 10:53 | disposition home or self-care (01) | LOC: DI 10:52 | PROVIDERS: ATTEND Family Medicine | DX: L03.90 Cellulitis, unspecified (principal) | CPT/HCPCS: 87070; 87077; 87101; 87205 ==

== ENCOUNTER 2023-02-03 07:59 | Outpatient (CLI) | payer MEDICARE, OTHER ==
[2023-02-03 12:04] LABS: BASOPHILS # (AUTO) 0.1 10^3/uL (0.0-0.1); BASOPHILS % (AUTO) 0.5 %; EOSINOPHILS # (AUTO) 0.2 10^3/uL (0.0-0.7); EOSINOPHILS % (AUTO) 1.8 %; HCT - HEMATOCRIT 33.2 % (42.0-52.0); HGB - HEMOGLOBIN 10.4 g/dL (14.0-18.0); LYMPHOCYTES # (AUTO) 1.7 10^3/uL (1.5-3.5); LYMPHOCYTES % (AUTO) 13.3 %; MEAN CORPUSCULAR HEMOGLOBIN 28.7 pg (27.0-31.0); MEAN CORPUSCULAR HGB CONC 31.3 g/dL (32.0-36.0); MEAN CORPUSCULAR VOLUME 91.7 fL (80.0-94.0); MEAN PLATELET VOLUME 9.8 fL (7.4-11.4); MONOCYTES # (AUTO) 0.5 10^3/uL (0.0-1.0); MONOCYTES % (AUTO) 4.2 %; NEUTROPHILS # (AUTO) 9.8 10^3/uL (1.5-6.6); NEUTROPHILS % (AUTO) 78.8 %; PLT - PLATELET COUNT 405 10^3/uL (130-450); RED BLOOD COUNT 3.62 10^6/uL (4.70-6.10); WHITE BLOOD COUNT 12.4 x10^3/uL (4.8-10.8)
[2023-02-03 12:35] LABS: ALBUMIN 2.8 g/dL (3.2-5.5); ALBUMIN/GLOBULIN RATIO 0.8 (1.0-2.2); BILIRUBIN,TOTAL 0.3 mg/dL (0.2-1.0); CALCIUM 7.8 mg/dL (8.5-10.3); CREATININE 1.7 mg/dL (0.6-1.3); CRP - C-REACTIVE PROTEIN 6.1 mg/dL (<0.5); POTASSIUM 2.8 mmol/L (3.5-4.5); TOTAL PROTEIN 6.5 g/dL (6.4-8.9)
== END 2023-02-03 08:00 | disposition home or self-care (01) ==
LOC: LAB.N 07:59
PROVIDERS: ATTEND Physician Assistant Medical
DX: K50.90 Crohn's disease, unspecified, without complications (principal); K92.1 Melena
CPT/HCPCS: 36415; 80053; 85025; 85651; 86140

== ENCOUNTER 2023-02-08 07:30 | Outpatient (CLI) | payer MEDICARE, OTHER ==
[2023-02-08 13:01] LABS: BASOPHILS % (AUTO) 0.2 %; EOSINOPHILS % (AUTO) 0.1 %; HCT - HEMATOCRIT 31.6 % (42.0-52.0); LYMPHOCYTES # (AUTO) 1.4 10^3/uL (1.5-3.5); LYMPHOCYTES % (AUTO) 9.6 %; MEAN CORPUSCULAR HGB CONC 31.6 g/dL (32.0-36.0); MEAN CORPUSCULAR VOLUME 91.6 fL (80.0-94.0); MONOCYTES # (AUTO) 0.8 10^3/uL (0.0-1.0); MONOCYTES % (AUTO) 5.5 %; NEUTROPHILS # (AUTO) 11.9 10^3/uL (1.5-6.6); PLT - PLATELET COUNT 454 10^3/uL (130-450); RED BLOOD COUNT 3.45 10^6/uL (4.70-6.10); WHITE BLOOD COUNT 14.2 x10^3/uL (4.8-10.8)
[2023-02-08 13:19] LABS: ALBUMIN 2.8 g/dL (3.2-5.5); ALBUMIN/GLOBULIN RATIO 0.8 (1.0-2.2); BILIRUBIN,TOTAL 0.2 mg/dL (0.2-1.0); CALCIUM 8.4 mg/dL (8.5-10.3); CREATININE 1.5 mg/dL (0.6-1.3); POTASSIUM 3.1 mmol/L (3.5-4.5); TOTAL PROTEIN 6.3 g/dL (6.4-8.9)
== END 2023-02-08 07:31 | disposition home or self-care (01) ==
LOC: LAB.N 07:30
PROVIDERS: ATTEND Physician Assistant Medical
DX: K50.90 Crohn's disease, unspecified, without complications (principal)
CPT/HCPCS: 36415; 80053; 85025

== ENCOUNTER 2023-09-10 02:00 | Outpatient (CLI) | payer MEDICARE, OTHER | END 2023-09-10 23:59 | disposition critical access hospital (66) | LOC: EMS 02:00 | DX: R06.02 Shortness of breath (principal); R05.9 Cough, unspecified; R09.3 Abnormal sputum | CPT/HCPCS: A0425; A0427 ==

== ENCOUNTER 2023-09-10 02:25 | Inpatient (IN) | payer MEDICARE, OTHER ==
[2023-09-10 02:47] LABS: BASOPHILS % (AUTO) 0.4 %; EOSINOPHILS % (AUTO) 0.3 %; HCT - HEMATOCRIT 31.9 % (42.0-52.0); HGB - HEMOGLOBIN 9.9 g/dL (14.0-18.0); LYMPHOCYTES % (AUTO) 8.4 %; MEAN CORPUSCULAR HEMOGLOBIN 27.3 pg (27.0-31.0); MEAN CORPUSCULAR VOLUME 87.9 fL (80.0-94.0); MEAN PLATELET VOLUME 8.9 fL (7.4-11.4); MONOCYTES % (AUTO) 2.7 %; NEUTROPHILS % (AUTO) 86.9 %; PLT - PLATELET COUNT 328 10^3/uL (130-450); RED BLOOD COUNT 3.63 10^6/uL (4.70-6.10); RED CELL DISTRIBUTION WIDTH 16.8 % (12.0-15.0); WHITE BLOOD COUNT 24.9 x10^3/uL (4.8-10.8)
[2023-09-10 02:49] LABS: ABNORMAL LYMPHS % (MANUAL) 0 %
[2023-09-10] MEDS: AMIODARONE 150 MG/100 ML 100 ML IV ONE ×2 (03:02→07:14)
--- NOTE | 2023-09-10 03:05 | ED Physician Documentation ---
History of Present Illness - Stated complaint Stated Complaint: COUGH - Chief complaint Chief Complaint: Resp - History obtained from History obtained from: Patient, EMS - Additonal information Additional information: 78-year-old man with past medical history of high blood pressure, atherosclerosis, smoker, presents with 2 3 days of cough with shortness of breath tonight. Patient received 5 of albuterol en route with minimal improvement in shortness of breath. He was 87% room air on scene initially. Patient denies chest pain, hemoptysis, leg swelling or calf pain. PD PAST MEDICAL HISTORY - Past Medical History Cardiovascular: Hypertension, Coronary artery disease Respiratory: None Neuro: None Endocrine/Autoimmune: None GI: Crohn's disease : None HEENT: None Psych: None Musculoskeletal: None Derm: None - Past Surgical History Past Surgical History: Yes General: Other Cardiovascular: AAA, Other HEENT: Tonsil/Adenoidectomy - Present Medications Home Medications: Ambulatory Orders Medication Instructions Recorded Confirmed Gabapentin [Neurontin] 100 mg PO TID PRN 09/10/23 09/10/23 Lisinopril/Hydrochlorothiazide 1 each PO DAILY 09/10/23 09/10/23 [Zestoretic 20-25 mg Tablet] Potassium Chloride 40 meq PO DAILY 09/10/23 09/10/23 azaTHIOprine [Imuran] 50 mg PO DAILY 09/10/23 09/10/23 - Allergies Allergies/Adverse Reactions: Allergies Allergy/AdvReac Type Severity Reaction Status Date / Time No Known Drug Allergies Allergy Verified 09/10/23 02:39 - Social History Does the pt smoke?: Yes Smoking Status: Current every day smoker Does the pt drink ETOH?: No Does the pt have substance abuse?: No - Immunizations Immunizations are current?: Yes - POLST Patient has POLST: Yes PD ED PE NORMAL - Vitals Vital signs reviewed: Yes - General General: Alert and oriented X 3, Other (Elderly appearing with increased work of breathing) - HEENT HEENT: Atraumatic, PERRL, EOMI, Moist mucous membranes, Pharynx benign - Neck Neck: Supple, no meningeal sign - Cardiac Cardiac: Other (Tachycardic rate, regular rhythm) - Respiratory Respiratory: Other (Coarse bilateral breath sounds) - Abdomen Abdomen: Non tender, Non distended - Derm Derm: Normal color, Warm and dry - Extremities Extremities: No deformity - Neuro Neuro: Alert and oriented X 3 - Psych Psych: Normal mood, Normal affect Results - Vitals Vitals: Vital Signs - 24 hr 09/10/23 02:29 Temperature 37.0 C Heart Rate 116 H Respiratory 25 H Rate Blood Pressure 131/68 H O2 Saturation 90 L Oxygen O2 Source Room air - EKG (time done) 0235 EKG releavant findings:: EKG personally interpreted by author of this note. Relevant findings are: Rate: Rate (enter#) (111) Rhythm: Sinus tachycardia 0252 EKG releavant findings:: EKG personally interpreted by author of this note. Relevant findings are: Rate: Rate (enter#) (219) Rhythm: V tach - Labs Labs: Laboratory Tests 09/10/23 09/10/23 02:41 02:41 WBC 24.9 H RBC 3.63 L Hgb 9.9 L Hct 31.9 L MCV 87.9 MCH 27.3 MCHC 31.0 L RDW 16.8 H Plt Count 328 MPV 8.9 Neut # (Auto) Not Reportable Lymph # (Auto) Not Reportable [place] # (Auto) Not Reportable Eos # (Auto) Not Reportable Baso # (Auto) Not Reportable Absolute Nucleated RBC Not Reportable Total Counted 100 Band Neuts % (Manual) 10 Abnorm Lymph % (Manual) 0 Nucleated RBC % Not Reportable Neutrophils # (Manual) 22.9 H Lymphocytes # (Manual) 1.7 Monocytes # (Manual) 0.2 Eosinophils # (Manual) 0.0 Basophils # (Manual) 0.0 Differential Comment MANUAL DIFFERENTIAL Platelet Estimate NORMAL (130-450,000) RBC Morph Micro Appear NORMAL APPEARANCE Sodium 134 L Potassium 3.4 L Chloride 107 Carbon Dioxide 20 L Anion Gap 7.0 BUN 20 Creatinine 1.4 H Estimated GFR (MDRD) 49 L Glucose 121 H Calcium 8.8 Total Bilirubin 0.5 AST 21 ALT 7 L Alkaline Phosphatase 81 Total Protein 6.5 Albumin 2.7 L Globulin 3.8 Albumin/Globulin Ratio 0.7 L Lipase < 10 L PD Medical Decision Making - ED course ED course: 78-year-old man presents with shortness of breath for the past 2 to 3 days with associated cough. Patient is hypoxic, tachycardic, tachypneic with increased work of breathing on arrival and has intermittent episodes of nonsustained V. tach on the monitoring coordinator. Upon discussing goals of care patient is adamant he would like to allow natural when his time comes and would like to be DNR/DNI with selective treatment only. POLST form filled out and signed. Refused bipap and facemask but consented to nasal cannula and medications. Plan to administer amiodarone and BS antibiotics for presumed sepsis complicated by nonsustained V. tach. CBC, abdominal panel, lactic acid, VBG, RVP, blood cultures, chest x-ray ordered. EKG initially shows sinus tachycardia and second EKG was able to capture ns V. tach. will continue to monitor and give pain meds as needed with goal of treating selectively to maximize his comfort. WBC 24.9 - profound leukocytosis. patient has stable anemia and ckd on labs. plan to admit pending cxr. Departure - Departure Clinical Impression: Nonsustained ventricular tachycardia, Shortness of breath, Hypoxia Forms: PCP List
[2023-09-10 03:06] LABS: ALBUMIN 2.7 g/dL (3.2-5.5); ALBUMIN/GLOBULIN RATIO 0.7 (1.0-2.2); ALKALINE PHOSPHATASE 81 IU/L (42-121); ALT ALANINE AMINOTRANSFERASE 7 IU/L (10-60); AST ASPARTATE AMINOTRANSFERASE 21 IU/L (10-42); BILIRUBIN,TOTAL 0.5 mg/dL (0.2-1.0); BUN - BLOOD UREA NITROGEN 20 mg/dL (6-20); CALCIUM 8.8 mg/dL (8.5-10.3); CARBON DIOXIDE - CO2 20 mmol/L (21-32); CHLORIDE 107 mmol/L (101-111); CREATININE 1.4 mg/dL (0.6-1.3); GFR - MDRD 49 (>89); GLUCOSE 121 mg/dL (74-104); LIPASE < 10 U/L (11-82); POTASSIUM 3.4 mmol/L (3.5-4.5); SODIUM 134 mmol/L (135-145); TOTAL PROTEIN 6.5 g/dL (6.4-8.9)
[2023-09-10 03:10] LABS: BAND NEUTROPHILS % (MANUAL) 10 %; LYMPHOCYTES # (MANUAL) 1.7 10^3/uL (1.5-3.5); LYMPHOCYTES % (MANUAL) 7 %; MONOCYTES # (MANUAL) 0.2 10^3/uL (0.0-1.0); NEUTROPHILS # (MANUAL) 22.9 10^3/uL (1.5-6.6)
[2023-09-10 03:11] LABS: DIFFERENTIAL COMMENT MANUAL DIFFERENTIAL; PLATELET ESTIMATE, MANUAL NORMAL (130-450,000) (NORMAL); RBC MORPHOLOGY (MULTIPLE) NORMAL APPEARANCE (NORMAL)
[2023-09-10] MEDS ORDERED: VANCOMYCIN 1 GM VIAL ONE (03:18)
[2023-09-10] MEDS: PIPERACILLIN/TAZOBACTAM 3.375 GM in SODIUM CHLORIDE 0.9% MINIBAG 100 ML IV STA (03:22)
[2023-09-10] MEDS: VANCOMYCIN INJ 1.25 GM in SODIUM CHLORIDE 0.9% 250 ML IV STA (03:25)
[2023-09-10] MEDS: AMIODARONE 360 MG/200 ML 200 ML IV ONE (04:01)
[2023-09-10 04:06] LABS: VBG BASE EXCESS -6.1 mmol/L (-2 - +2); VBG HCO3 19.5 mmol/L (23-28); VBG OXYGEN SATURATION 76.7 % (60-80); VBG PCO2 38.8 mmHg (41-51); VBG PH 7.319 (7.31-7.41); VBG PO2 45.6 mmHg (25-47); VBG TOTAL CO2 20.7 mmol/L (24-29)
[2023-09-10 04:14] LABS: LACTIC ACID, VENOUS 2.4 mmol/L (0.5-2.2)
[2023-09-10] MEDS ORDERED: SODIUM CHLORIDE FLUSH 0.9% 10 ML SYRINGE IVP PRN (04:47)
[2023-09-10] MEDS ORDERED: ONDANSETRON 4 MG/2 ML VIAL IVP PRN (04:47)
[2023-09-10] MEDS ORDERED: PROCHLORPERAZINE 10 MG/2 ML VIAL IVP PRN (04:47)
[2023-09-10] MEDS ORDERED: ACETAMINOPHEN 325 MG TABLET PO PRN (04:47)
[2023-09-10 04:52] LABS: B. PARAPERTUSSIS- RESP PCR PAN NOT DETECTED; CORONAVIRUS 229E-RESP PCR NOT DETECTED; CORONAVIRUS HKU1-RESP PCR NOT DETECTED; CORONAVIRUS NL63-RESP PCR NOT DETECTED; CORONAVIRUS OC43-RESP PCR NOT DETECTED; HUMAN METAPNEUMOVIRUS NOT DETECTED; INFLUENZA A- RESP PCR PANEL NOT DETECTED; INFLUENZA B - RESP PCR PANEL NOT DETECTED; PARAINFLUENZA VIRUS 1 NOT DETECTED; PARAINFLUENZA VIRUS 2 NOT DETECTED; PARAINFLUENZA VIRUS 3 NOT DETECTED; PARAINFLUENZA VIRUS 4 NOT DETECTED; RHINOVIRUS/ENTEROVIRUS DETECTED; RSV- RESP PCR PANEL NOT DETECTED; SARS-CoV-2 -RESP PCR PANEL NOT DETECTED
[2023-09-10 04:53] LABS: B. PERTUSSIS- RESP PCR PANEL NOT DETECTED; C. PNEUMONIAE- RESP PCR PANEL NOT DETECTED; M. PNEUMONIAE- RESP PCR PANEL NOT DETECTED
[2023-09-10] MEDS ORDERED: POTASSIUM CHLORIDE INJ 40 MEQ in SODIUM CHLORIDE 0.9% 500 ML IV ONE (04:53)
[2023-09-10] MEDS ORDERED: hydrALAZINE INJ 20 MG/ML VIAL IVP PRN (05:03)
--- NOTE | 2023-09-10 05:23 | HISTORY & PHYSICAL EXAMINATION ---
Chief Complaint - Chief Complaint Chief Complaint: SOB History of Present Illness - Admitted From Admitted From:: ED - History Obtained From Records Reviewed: EMR History obtained from: Patient & ED staff Exam Limitations: Tele medicine - History of Present Illness HPI Comment/Other: 78M c tobacco abuse, COPD, hypertension p/w SOB for the past couple of days. Patient is alert and oriented. He has capacity to make decisions. Patient was reluctant in coming into the hospital and had initially declined hospitalization. He reports not on oxygen at home. No recent fever. No chest pain. He developed sudden SOB x 2 days. He lives with Clint. He has not living family members. Clint called EMS because patient could not breathe. Patient was brought into the ED and noted hypoxemic. He was test positive for viral URI. CXR did not show overt infiltrate but noted emphysematous changes. He was given abx. He was noted runs of NSVT. Patient declined any life saving measures. He did not want cardioversion. No intubation. Patient states he still smokes tobacco. History - Past Medical History Cardiovascular: reports: Hypertension, Coronary artery disease Respiratory: reports: None Neuro: reports: None Endocrine/Autoimmune: reports: None GI: reports: Crohn's disease : reports: None HEENT: reports: None Psych: reports: None Musculoskeletal: reports: None Derm: reports: None MRSA Hx?: No - Past Surgical History General: reports: Other Cardiovascular: reports: AAA, Other HEENT: reports: Tonsil/Adenoidectomy - POLST Patient has POLST: Yes Meds/Allgy - Home Medications Home Medications: Ambulatory Orders Medication Instructions Recorded Confirmed Gabapentin [Neurontin] 100 mg PO TID PRN 09/10/23 09/10/23 Lisinopril/Hydrochlorothiazide 1 each PO DAILY 09/10/23 09/10/23 [Zestoretic 20-25 mg Tablet] Potassium Chloride 40 meq PO DAILY 09/10/23 09/10/23 azaTHIOprine [Imuran] 50 mg PO DAILY 09/10/23 09/10/23 - Allergies Allergies/Adverse Reactions: Allergies Allergy/AdvReac Type Severity Reaction Status Date / Time No Known Drug Allergies Allergy Verified 09/10/23 02:39 Review of Systems - Constitutional Constitutional: denies: Fever - Cardiovascular Cariovascular: denies: Palpitations, Chest pain - Respiratory Respiratory: reports: Cough, SOB at rest Exam - Vital Signs Vital Signs: Vital Signs x48h Temp Pulse Resp BP Pulse Ox O2 Flow Rate 09/10/23 04:45 97 4 09/10/23 04:38 89 28 H 91 L 09/10/23 04:30 83 26 H 102/68 98 09/10/23 04:20 84 28 H 98 09/10/23 04:10 86 09/10/23 04:00 90 25 H 99/80 93 4 09/10/23 03:19 94 27 H 111/57 L 92 4 09/10/23 03:00 109 H 29 H 108/94 H 95 4 09/10/23 02:29 37.0 C 116 H 25 H 131/68 H 90 L - Physical Exam General Appearance: positive: Alert, Mild distress Eyes Bilateral: positive: Normal inspection ENT: positive: ENT inspection nml Neck: positive: Nml inspection Cardiovascular: positive: Tachycardia Back: positive: Nml inspection Skin: positive: Color nml Neurologic/Psychiatric: positive: Oriented x3, CN's nml (2-12), Motor nml Conclusion/Plan - Problem List (1) COPD exacerbation Conclusion/Plan: 2/2 tobacco abuse. nicotine patch for smoking cessation. breathing treatment. O2 support. prednisone. abx. followup on cultures and labs studies. DNR/DNI. (2) Acute hypoxemic respiratory failure Conclusion/Plan: 2/2 COPD exacerbation and ongoing tobacco abuse. recommend stop smoking. breathing treatment. prednisone. abx. O2 support. (3) Nonsustained ventricular tachycardia Conclusion/Plan: unclear trigger. possible copd exacerbation triggering arrhythmia. will replete K and Mg. will add amiodarone gtt for NSVT. followup echo and troponin and BNP for acs evaluation. followup on repeat electrolyte and mg levels. monitor on tele. DNR/DNI. no cardioversion per patient. (4) CKD (chronic kidney disease) stage 3, GFR 30-59 ml/min Conclusion/Plan: stable renal function compared to prior levels. avoid nephrotoxins. monitor renal function c repeat bmp Qualifiers: Chronic kidney disease stage 3 subtype: stage 3a (GFR 45-59) Qualified Code(s): N18.31 - Chronic kidney disease, stage 3a (5) Hypertension Conclusion/Plan: controlled. hold home antihypertensive 2/2 low K and NSVT. will manage hypertension with prn hydralazine instead. monitor bp with repeat vital checks Qualifiers: Hypertension type: primary hypertension Qualified Code(s): I10 - Essential (primary) hypertension (6) Chronic anemia Conclusion/Plan: stable hgb&hct. no report of acute bleed. monitor c repeat cbc (7) Crohn disease Conclusion/Plan: stable. no acute flare on presentation. noted on Imuran. no GI sxs reported. holding Imuran 2/2 acute infection + no flare + start prednisone for CODP exacerbation. monitor and intervene further as needed. - Lab Results Lab results reviewed: Yes Fish Bones: 09/10/23 02:41 09/10/23 02:41 - Diagnostic Imaging Results Diagnostic Imaging Results: positive: Final report reviewed - EKG Results EKG Interpreted Independently: Yes Core Measures - Anticipated LOS I expect patient to be DC'd or transferred within 96 hours.: No - Issues Hospital Issues and Management Plan: The patient consented to receive this telemedicine service, which I performed via live two-way audiovisual equipment. The patient is at ([facility]) and I am physically in [facility] [place]. A nurse assisted me in the visit. - DVT/VTE - Prophylaxis VTE/DVT Device ordered at admit?: Yes Telemedicine Consult Details - Provider Location & Consult Time Telemedicine consultation conducted via videoconferencing?: Yes List names and roles of persons who participated in consult:: ED, patient Telemedicine provider location:: [facility] Time Telemedicine consult began:: 04:55 Time Telemedicine consult completed:: 06:03
[2023-09-10] MEDS ORDERED: AMIODARONE 360 MG/200 ML 200 ML IV ONE (06:00)
[2023-09-10] MEDS: SODIUM CHLORIDE 0.9% 1,000 ML IV SCH (06:20)
[2023-09-10] MEDS: MAGNESIUM SULFATE 2 GRAM 2 GM/50 ML BAG IV ONE (06:26)
[2023-09-10] MEDS: methylPREDNISolone SUCCINATE 40 MG/ML VIAL IVP STA (06:30)
[2023-09-10] MEDS: NICOTINE 14 MG PATCH TOP PRN (07:06)
[2023-09-10] MEDS: POTASSIUM CHLOR 10 MEQ/100 ML 10 MEQ/100 ML BAG IV SCH (07:30)
[2023-09-10] MEDS ORDERED: AMIODARONE 200 MG TABLET PO SCH (09:00)
--- NOTE | 2023-09-10 09:02 | XRAY Report ---
PROCEDURE: Chest 1V INDICATIONS: Chest Pain TECHNIQUE: One view of the chest was acquired. COMPARISON: Chest x-ray 09/12/2019 FINDINGS: Surgical changes and devices: None. Lungs and pleura: No pleural effusions or pneumothorax. Emphysematous changes. Questionable appear ance of bronchial wall thickening. Mediastinum: Mediastinal contours appear normal. Heart size is normal. Bones and chest wall: No suspicious bony lesions. Overlying soft tissues appear unremarkable. IMPRESSION: Questionable appearance of bronchial wall thickening which may represent reactive airspace disease. The above findings are concordant with preliminary report. Reviewed by: Cecile Epps MD on 09/10/2023 9:01 AM PDT Approved by: Cecile Epps MD on 09/10/2023 9:01 AM PDT Station ID: [id number]
[2023-09-10] MEDS: DOXYCYCLINE INJ 100 MG in SODIUM CHLORIDE 0.9% MINIBAG 100 ML IV SCH (09:11)
[2023-09-10] MEDS: cefTRIAXone 2 GM in SODIUM CHLORIDE 0.9% MINIBAG 100 ML IV SCH (09:12)
[2023-09-10] MEDS: HEPARIN 5,000 UNIT/ML VIAL SUBQ SCH (09:12)
[2023-09-10] MEDS: predniSONE 20 MG TABLET PO SCH (09:12)
[2023-09-10] MEDS: SODIUM CHLORIDE FLUSH 0.9% 10 ML SYRINGE IVP SCH (09:41)
[2023-09-10] MEDS: AMIODARONE 360 MG/200 ML 200 ML IV SCH (09:42)
--- NOTE | 2023-09-10 11:31 | PHARMACY PROGRESS NOTE ---
- Best Possible Medication History Admit Date and Time: 09/10/23 0447 Processed by: Pharmacy Medications reviewed in ED?: Yes Medication History completed: Yes Patient Interview: Completed Secondary Source(s): Prescription bottles, Insurance records As the person ultimately responsible for medication therapy, providers are able to order a medication from an existing home medication list in [facility] via the "Reconcile Routine" prior to Confirmation of that medication by it support manager. Such practice is discouraged except when the physician, in their clinical judgment, deems that a medical need exists for a medication without regard to previous use.
[2023-09-10] MEDS ORDERED: ALBUTEROL NEB 2.5 MG/3 ML INH PRN (12:05)
[2023-09-10] MEDS: IPRATROPIUM 0.2 MG/ML NEB INH SCH (12:06)
[2023-09-10] MEDS: IPRATROPIUM/ALBUTEROL 3 ML NEB INH SCH (12:36)
[2023-09-10 13:10] LABS: MAGNESIUM 2.1 mg/dL (1.7-2.3); POTASSIUM 3.8 mmol/L (3.5-4.5)
[2023-09-10] MEDS ORDERED: GABAPENTIN 100 MG CAPSULE PO PRN (15:11)
--- NOTE | 2023-09-10 15:58 | PROVIDER PROGRESS NOTE ---
Progress Note September 10, 2023 3:45 PM Patient seen this morning. This afternoon stable. Nasal tone of voice. Very talkative jovial gentleman. Respiratory therapy pointed out that he is on Atrovent only. He did receive methylprednisolone IV once and now he is on prednisone 40 daily. He says he does feel better from yesterday today. Not nearly as short of breath. Still with a congested cough. He would like me to resume his Imuran. But it is immunosuppressive and at this time, with infection, he needs to be off of Temperature is 36.3. Heart rate 59. Blood pressure 98/45. Respirations 24. 94% on room air. Thin cachectic elderly gentleman Nasal tone to voice Rhonchi both lung gutierres but no wheezing. Good air movement. No tachypnea or use of accessory muscles. Regular rate and rhythm Abdomen soft nontender Assessment/plan COPD exacerbation due to viral illness. Rhinovirus specifically. He also smokes. Already on antibiotics, steroids. Respiratory therapy is asking to change his medications around so I have changed his single agent Atrovent to DuoNeb 4 times to 3 times a day on a fixed schedule. And albuterol can be 4 times a day as needed. Acute hypoxemic respiratory failure is improving. In the estate planning director hours he was on 4 L. By this afternoon he is on 2 L. Oxygen will be continued until it is safe for him to come off and O2 sats is consistently above 88% on room air. Lactic acidosis of 2.4 has resolved by this morning with 1.2. Nonsustained V. tach. Echocardiogram not available. He is on telemetry. He is a DNR. Troponin was normal at 38.2. BNP mildly elevated at 549. I did review his old records in our EMR. Unfortunately he does not have an old echo to refer to. I reviewed his records in the clinic. He has had a cardiac cath in February 2005. This was done prior to him having an aortobifemoral bypass to repair a AAA. occluded RCA. Occluded diagonal. No LVH. 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 He has had an abdominal aortic aneurysm repair with dacryon aortobifemoral bypass. That was done in February [address] [place] [address] Fuchs. Chronic kidney disease stable. Creatinine 1.4 on admission. Usual creatinine is as high as 1.7 for this gentleman. So there is no acute insufficiency. Hypertension. At home he takes no medication. Here he is relatively hypotensive. His systolic has been 98, 101, 109. Chronic anemia is stable Crohn disease is symptomatic today with diarrhea. He is asking for Lomotil and I have ordered that.
[2023-09-10] MEDS: DIPHENOX/ATROPINE 2.5/0.025 MG TABLET PO PRN (16:04)
[2023-09-10] MEDS: GABAPENTIN 100 MG CAPSULE PO SCH (16:05)
[2023-09-10] MEDS: AMIODARONE 200 MG TABLET PO SCH (16:05)
[2023-09-10] MEDS: MULTIVITAMIN W/MINERALS TABLET PO SCH (16:05)
[2023-09-11 05:24] LABS: HCT - HEMATOCRIT 25.5 % (42.0-52.0); HGB - HEMOGLOBIN 7.9 g/dL (14.0-18.0); MEAN CORPUSCULAR HEMOGLOBIN 26.9 pg (27.0-31.0); MEAN CORPUSCULAR VOLUME 86.7 fL (80.0-94.0); MEAN PLATELET VOLUME 9.8 fL (7.4-11.4); RED BLOOD COUNT 2.94 10^6/uL (4.70-6.10); RED CELL DISTRIBUTION WIDTH 17.2 % (12.0-15.0)
[2023-09-11 05:36] LABS: CALCIUM, IONIZED 1.21 mmol/L (1.15-1.33); VBG PH 7.415 (7.31-7.41)
[2023-09-11 05:43] LABS: ALBUMIN 2.1 g/dL (3.2-5.5); ALBUMIN/GLOBULIN RATIO 0.6 (1.0-2.2); BILIRUBIN,TOTAL 0.2 mg/dL (0.2-1.0); CALCIUM 8.9 mg/dL (8.5-10.3); CREATININE 1.3 mg/dL (0.6-1.3); MAGNESIUM 2.2 mg/dL (1.7-2.3); PHOSPHORUS 2.9 mg/dL (2.5-5.0); POTASSIUM 3.7 mmol/L (3.5-4.5); TOTAL PROTEIN 5.7 g/dL (6.4-8.9)
[2023-09-11 05:47] LABS: TROPONIN I HIGH SENSITIVITY 19.8 ng/L (2.3-19.7)
[2023-09-11 05:54] LABS: THYROID STIMULATING HORMONE 1.15 uIU/mL (0.34-5.60)
[2023-09-11 08:54] LABS: ABSOLUTE RETICS # AUTO 0.029 10^6/uL (0.020-0.110); RED BLOOD COUNT 2.93 10^6/uL (4.70-6.10); RETICULOCYTE COUNT % (AUTO) 0.99 % (0.5-2.3)
[2023-09-11] MEDS: AZITHROMYCIN INJ 500 MG in SODIUM CHLORIDE 0.9% 250 ML IV SCH (08:58)
[2023-09-11 09:11] LABS: % IRON SATURATION 8 % (20-50); IRON 13 ug/dL (50-212); TOTAL IRON BINDING CAPACITY 168 ug/dL (250-450); TRANSFERRIN 120 mg/dL (203-362)
--- NOTE | 2023-09-11 12:12 | PROVIDER PROGRESS NOTE ---
Subjective - Prog Note Date Prog Note Date: 09/11/23 Prog Note Time: 12:09 - Subjective Pt reports feeling: Improved Subjective: He says that he still has some chest congestion. But sort of text is himself forward to say that "I do not take anymore". He is still a little short of breath but not as much as he was yesterday or on admission. He is eating everything. He is down to 1 L nasal cannula at 98%. He is weak and wobbly on his legs when he gets up. Current Medications - Current Medications Current Medications: Active Medications Acetaminophen (Acetaminophen 325 Mg Tablet) 650 mg PO Q4HR PRN PRN Reason: Pain 1 to 4, or Fever Albuterol (Albuterol Neb 2.5 Mg/3 Ml) 2.5 mg INH RTQ4H PRN PRN Reason: Wheezing Albuterol/Ipratropium (Ipratropium/Albuterol 3 Ml Neb) 3 ml INH RTTID [facility] Last Admin: 09/11/23 07:17 Dose: Not Given Amiodarone HCl (Amiodarone 200 Mg Tablet) 200 mg PO DAILY [facility] Last Admin: 09/11/23 09:05 Dose: 200 mg Diphenoxylate HCl/Atropine (Diphenox/Atropine 2.5/0.025 Mg Tablet) 1 tab PO QID PRN PRN Reason: Diarrhea Last Admin: 09/10/23 16:04 Dose: 1 tab Gabapentin (Gabapentin 100 Mg Capsule) 100 mg PO TID [facility] Last Admin: 09/11/23 06:35 Dose: 100 mg Heparin Sodium (Porcine) (Heparin 5,000 Unit/Ml Vial) 5,000 unit SUBQ BID [facility] Last Admin: 09/11/23 09:05 Dose: 5,000 unit Hydralazine HCl (Hydralazine Inj 20 Mg/Ml Vial) 10 mg IVP Q6HR PRN PRN Reason: sbp>160 Ceftriaxone Sodium 2 gm/ (Sodium Chloride) 100 mls @ 200 mls/hr IV DAILY [facility] Stop: 09/14/23 09:29 Last Admin: 09/11/23 08:57 Dose: 200 mls/hr Azithromycin 500 mg/ Sodium (Chloride) 250 mls @ 250 mls/hr IV DAILY [facility] Stop: 09/13/23 09:59 Last Admin: 09/11/23 08:58 Dose: 250 mls/hr Iron Dextran 1,500 mg/ Sodium (Chloride) 530 mls @ 132.5 mls/hr IV ONCE ONE Stop: 09/11/23 12:08 Multivitamins/Minerals (Multivitamin W/Minerals Tablet) [facility] [place] Last Admin: 09/11/23 09:02 Dose: 1 tab Nicotine (Nicotine 14 Mg Patch) 1 patch TOP DAILY PRN PRN Reason: smoking cessation Last Admin: 09/11/23 10:56 Dose: 1 patch Ondansetron HCl (Ondansetron 4 Mg/2 Ml Vial) 4 mg IVP Q6HR PRN PRN Reason: Nausea / Vomiting Prednisone (Prednisone 20 Mg Tablet) 40 mg PO DAILY [facility] Last Admin: 09/11/23 08:57 Dose: 40 mg Prochlorperazine Edisylate (Prochlorperazine 10 Mg/2 Ml Vial) 10 mg IVP Q6HR PRN PRN Reason: Nausea / Vomiting Sodium Chloride (Sodium Chloride Flush 0.9% 10 Ml Syringe) 10 ml IVP PRN PRN PRN Reason: NEEDED PER PROVIDER ORDERS Sodium Chloride (Sodium Chloride Flush 0.9% 10 Ml Syringe) 10 ml IVP 0100,0900,1700 [facility] Last Admin: 09/11/23 09:05 Dose: 10 ml Gabapentin [Neurontin] 100 mg PO TID PRN 09/10/23 Potassium Chloride 20 meq PO BIDWM 09/10/23 azaTHIOprine [Imuran] 50 mg PO DAILY 09/10/23 Objective - Vital Signs/Intake & Output Reviewed Vital Signs: Yes Vital Signs: Vital Signs Temp Pulse Resp BP Pulse Ox 09/11/23 12:00 72 20 140/64 H 91 L 09/11/23 11:00 79 22 126/64 92 09/11/23 10:00 78 20 135/59 H 94 09/11/23 09:00 37 C 72 24 115/59 L 95 Intake & Output: Intake & Output 09/08/23 09/09/23 09/10/23 09/11/23 23:59 23:59 23:59 23:59 Intake Total 2186.115 520 Output Total 150 Balance 2036.115 520 - Objective General Appearance: positive: No acute distress, Alert, Other (Nasal tone of voice, still congested. Gaunt, cachectic thin gentleman) Eyes Bilateral: positive: PERRL, EOMI ENT: positive: No signs of dehydration Neck: positive: No JVD, Lymphadenopathy (R) (Shotty), Lymphadenopathy (L) (Shotty) Respiratory: positive: No respiratory distress (Using full sentences, gesticulating without respiratory distress), Wheezes (Faint and diffuse without use of accessory muscles), Rhonchi (Scant musical) Cardiovascular: positive: Regular rate & rhythm, Tachycardia (At this moment. He just finished vigorously having a animated conversation with nurse and his pulse went to the 90s. Usually he is in the 50s and 70s) Abdomen: positive: Non-tender, No organomegaly, Nml bowel sounds, No distention Skin: positive: Warm, Dry Extremities: positive: Full ROM, No pedal edema, Other (Very thin and wasted extremities with loss of muscle mass) Neurologic/Psychiatric: positive: Oriented x3, CN's nml (2-12) (Deafness), Motor nml - Lab Results Fish Bones: 09/11/23 04:34 09/11/23 04:34 Other Labs: Lab Results x24hrs 09/11/23 09/11/23 09/11/23 Range/Units 08:42 08:42 04:34 WBC (4.8-10.8) x10^3/uL RBC 2.93 L (4.70-6.10) 10^6/uL Hgb (14.0-18.0) g/dL Hct (42.0-52.0) % MCV (80.0-94.0) fL MCH (27.0-31.0) pg MCHC (32.0-36.0) g/dL RDW (12.0-15.0) % Plt Count (130-450) 10^3/uL MPV (7.4-11.4) fL Reticulocyte % (Auto) 0.99 (0.5-2.3) % Absolute Retic 0.029 (0.020-0.110) 10^6/uL VBG pH 7.415 H (7.31-7.41) Ionized Calcium 1.21 (1.15-1.33) mmol/L Sodium (135-145) mmol/L Potassium (3.5-4.5) mmol/L Chloride (101-111) mmol/L Carbon Dioxide (21-32) mmol/L Anion Gap (6-13) BUN (6-20) mg/dL Creatinine (0.6-1.3) mg/dL Estimated GFR (MDRD) (>89) Glucose (74-104) mg/dL Calcium (8.5-10.3) mg/dL Phosphorus (2.5-5.0) mg/dL Magnesium (1.7-2.3) mg/dL Iron 13 L (50-212) ug/dL TIBC 168 L (250-450) ug/dL % Saturation 8 L (20-50) % Transferrin 120 L (203-362) mg/dL Total Bilirubin (0.2-1.0) mg/dL AST (10-42) IU/L ALT (10-60) IU/L Alkaline Phosphatase (42-121) IU/L Lactate Dehydrogenase (140-271) IU/L Troponin I High Sens (2.3-19.7) ng/L B-Natriuretic Peptide (5-100) pg/mL Total Protein (6.4-8.9) g/dL Albumin (3.2-5.5) g/dL Globulin (2.1-4.2) g/dL Albumin/Globulin Ratio (1.0-2.2) Vitamin B12 448 (180-914) pg/mL TSH (0.34-5.60) uIU/mL 09/11/23 09/11/23 09/11/23 Range/Units 04:34 04:34 04:34 WBC (4.8-10.8) x10^3/uL RBC (4.70-6.10) 10^6/uL Hgb (14.0-18.0) g/dL Hct (42.0-52.0) % MCV (80.0-94.0) fL MCH (27.0-31.0) pg MCHC (32.0-36.0) g/dL RDW (12.0-15.0) % Plt Count (130-450) 10^3/uL MPV (7.4-11.4) fL Reticulocyte % (Auto) (0.5-2.3) % Absolute Retic (0.020-0.110) 10^6/uL VBG pH (7.31-7.41) Ionized Calcium (1.15-1.33) mmol/L Sodium 136 (135-145) mmol/L Potassium 3.7 (3.5-4.5) mmol/L Chloride 107 (101-111) mmol/L Carbon Dioxide 24 (21-32) mmol/L Anion Gap 5.0 L (6-13) BUN 27 H (6-20) mg/dL Creatinine 1.3 (0.6-1.3) mg/dL Estimated GFR (MDRD) 53 L (>89) Glucose 118 H (74-104) mg/dL Calcium 8.9 (8.5-10.3) mg/dL Phosphorus 2.9 (2.5-5.0) mg/dL Magnesium 2.2 (1.7-2.3) mg/dL Iron (50-212) ug/dL TIBC (250-450) ug/dL % Saturation (20-50) % Transferrin (203-362) mg/dL Total Bilirubin 0.2 (0.2-1.0) mg/dL AST 28 (10-42) IU/L ALT 8 L (10-60) IU/L Alkaline Phosphatase 65 (42-121) IU/L Lactate Dehydrogenase 142 (140-271) IU/L Troponin I High Sens 19.8 H* (2.3-19.7) ng/L B-Natriuretic Peptide 489 H (5-100) pg/mL Total Protein 5.7 L (6.4-8.9) g/dL Albumin 2.1 L (3.2-5.5) g/dL Globulin 3.6 (2.1-4.2) g/dL Albumin/Globulin Ratio 0.6 L (1.0-2.2) Vitamin B12 (180-914) pg/mL TSH 1.15 (0.34-5.60) uIU/mL 09/11/23 09/10/23 Range/Units 04:34 12:54 WBC 15.0 H (4.8-10.8) x10^3/uL RBC 2.94 L (4.70-6.10) 10^6/uL Hgb 7.9 L (14.0-18.0) g/dL Hct 25.5 L (42.0-52.0) % MCV 86.7 (80.0-94.0) fL MCH 26.9 L (27.0-31.0) pg MCHC 31.0 L (32.0-36.0) g/dL RDW 17.2 H (12.0-15.0) % Plt Count 298 (130-450) 10^3/uL MPV 9.8 (7.4-11.4) fL Reticulocyte % (Auto) (0.5-2.3) % Absolute Retic (0.020-0.110) 10^6/uL VBG pH (7.31-7.41) Ionized Calcium (1.15-1.33) mmol/L Sodium 131 L (135-145) mmol/L Potassium 3.8 (3.5-4.5) mmol/L Chloride 105 (101-111) mmol/L Carbon Dioxide 19 L (21-32) mmol/L Anion Gap 7.0 (6-13) BUN (6-20) mg/dL Creatinine (0.6-1.3) mg/dL Estimated GFR (MDRD) (>89) Glucose (74-104) mg/dL Calcium (8.5-10.3) mg/dL Phosphorus (2.5-5.0) mg/dL Magnesium 2.1 (1.7-2.3) mg/dL Iron (50-212) ug/dL TIBC (250-450) ug/dL % Saturation (20-50) % Transferrin (203-362) mg/dL Total Bilirubin (0.2-1.0) mg/dL AST (10-42) IU/L ALT (10-60) IU/L Alkaline Phosphatase (42-121) IU/L Lactate Dehydrogenase (140-271) IU/L Troponin I High Sens (2.3-19.7) ng/L B-Natriuretic Peptide (5-100) pg/mL Total Protein (6.4-8.9) g/dL Albumin (3.2-5.5) g/dL Globulin (2.1-4.2) g/dL Albumin/Globulin Ratio (1.0-2.2) Vitamin B12 (180-914) pg/mL TSH (0.34-5.60) uIU/mL Assessment/Plan - Problem List (1) Acute hypoxemic respiratory failure Impression: To be due to COPD exacerbation and that is secondary to rhinovirus. Patient is on albuterol as needed, DuoNeb 3 times a day, antibiotics, and prednisone p.o. Hypoxia is improving quickly. Today he is down to 1 L nasal cannula. If he can get off oxygen today, I anticipate discharge tomorrow. (2) COPD exacerbation Impression: As listed in problem #1. I will start p.o. steroids tomorrow. He will of had a total of 3 doses or 3 days of steroids Greatest wishes to leave here and go smoke. I have given him a nicotine patch. But he says is not enough and he wants to go smoke. I was apologetic but he cannot smoke care. (3) Chronic anemia Impression: This gentleman has Crohn's disease. Chronic intermittent loose bowels. In looking at the electronic medical record his hemoglobin is usually between 10.0 and 10.7. Rarely is he is at 11. He is cachectic which indicates that he may be having malabsorption. I did an iron panel and his iron is 13, TIBC is 168, TIBC 8, and percent saturation 120. Vitamin B12 is normal at 448. TSH normal at 1.15. Total protein is 5.7. Albumin 2.1.Hemoglobin on admission was 9.9, he is 7.9 now. Plan: INFeD 1500 mg IV piggyback x 1 I do not know how much is malabsorption can be treated in the outpatient setting. I like him to follow-up with his primary care provider and make sure he takes a vitamin for all of the B's, and an iron tablet on a regular basis. However if he is not absorbing he would be candidate for IM B12 and a monthly iron infusion. I do not know if he would agree to that. He is quite a colorful, cantankerous elderly gentleman Since his hemoglobin is dropped below 8, and he is hypoxic, I will transfuse 1 unit of packed cells (4) Crohn disease Impression: Started on Lomotil yesterday. Has had some slowing of chronic intermittent loose stool Resume Imuran in the outpatient setting Qualifiers: Gastrointestinal tract location: unspecified location (5) Nonsustained ventricular tachycardia Impression: He was loaded with IV amiodarone on admission. Unable to get an echo during this admission. Previous records show his ejection fraction to be normal. He will be discharged on p.o. amiodarone and to follow-up with his primary care provider to see if he needs an echo, or change in medication for the nonsustained V. tach
[2023-09-11] MEDS: IRON DEXTRAN 1,500 MG in SODIUM CHLORIDE 0.9% 500 ML IV ONE (13:28)
[2023-09-11] MEDS: POTASSIUM CHLORIDE 20 MEQ/15 ML UDC PO ONE (16:18)
[2023-09-12 06:09] LABS: MAGNESIUM 2.1 mg/dL (1.7-2.3); PHOSPHORUS 3.5 mg/dL (2.5-5.0)
[2023-09-12 06:26] LABS: CALCIUM, IONIZED 1.15 mmol/L (1.15-1.33); VBG PH 7.356 (7.31-7.41)
--- NOTE | 2023-09-12 07:49 | Discharge Plan ---
Discharge Plan Problem Reviewed?: Yes Disposition: Home, Self Care Condition: Fair Prescriptions: levoFLOXacin [Levaquin] 500 mg PO QD #6 tablet Amiodarone [Pacerone] 200 mg PO DAILY #30 tab Diet: Regular Activity Restrictions: No Restrictions Shower Restrictions: No Driving Restrictions: Yes (no driving) Assistance Devices: [facility] Concerns: You are an elderly gentleman with Crohn's disease, heart disease, and emphysema. You are still a smoker. Your Crohn's disease gives you frequent diarrhea and you do not absorb nutrition from your food as well as you should. So that leaves you with an anemia that is iron deficient. You developed sudden shortness of breath about 2 days before you came to the hospital. Your godson Clint lives with you to help take care of you. Clint called EMS because you just could not breathe. Your oxygen level was very low and you had a virus called rhinovirus. It is the common cold but you are immune compromised because you take azathioprine for your Crohn's disease and you have moderate emphysema. I think that caused your to decompensate severely. While you are in the emergency room you also had a burst of cardiac irregularity with regards to your heartbeat that was called nonsustained Ventricular tachcardia. If that goes on for too long you do . You were put in the ICU because of the heart irregularity and started on antibiotics and steroids for your emphysema. Your heart beat has had 1 more burst of rhythm disturbance but otherwise you have improved. The only problem is that you still need oxygen to maintain normal oxygen saturation. Plan of Treatment: 1. We have started 2 new medicines . One is amiodarone. You take that tablet once a day. It is for the heart irregularity. Please see your primary care provider in follow-up because you need to do a follow-up study for your heart called an echocardiogram. Your primary care provider may then decide to send you to a paper cup machine operator. 2. You are going to finish antibiotics with a medication called Levaquin. You take 2 tablets once a day for 3 days. 3. You are still needing oxygen temporarily. As such we are sending you home with oxygen Additional Instructions or Follow Up instructions: Patient is alert, oriented to person, place, time and situation. He has impulsive verbalizations. He is quite cantankerous. But he is still decisional. No Smoking: If you smoke, Please STOP! Call for help.
[2023-09-12] MEDS: FUROSEMIDE 20 MG/2 ML VIAL IVP ONE (08:29)
[2023-09-12] MEDS: POTASSIUM CHLORIDE 20 MEQ/15 ML UDC PO ONE (08:29)
[2023-09-12 08:31] LABS: BASOPHILS % (AUTO) 0.2 %; HCT - HEMATOCRIT 32.8 % (42.0-52.0); HGB - HEMOGLOBIN 10.2 g/dL (14.0-18.0); LYMPHOCYTES % (AUTO) 8.3 %; MEAN CORPUSCULAR HEMOGLOBIN 27.6 pg (27.0-31.0); MEAN CORPUSCULAR HGB CONC 31.1 g/dL (32.0-36.0); MEAN CORPUSCULAR VOLUME 88.6 fL (80.0-94.0); MEAN PLATELET VOLUME 9.3 fL (7.4-11.4); MONOCYTES # (AUTO) 0.3 10^3/uL (0.0-1.0); MONOCYTES % (AUTO) 2.3 %; NEUTROPHILS # (AUTO) 10.6 10^3/uL (1.5-6.6); NEUTROPHILS % (AUTO) 88.4 %; PLT - PLATELET COUNT 298 10^3/uL (130-450); WHITE BLOOD COUNT 11.9 x10^3/uL (4.8-10.8)
[2023-09-12 08:56] LABS: CALCIUM 9.1 mg/dL (8.5-10.3); CREATININE 1.4 mg/dL (0.6-1.3); POTASSIUM 3.4 mmol/L (3.5-4.5)
[2023-09-12] MEDS: POTASSIUM CHLORIDE 20 MEQ/15 ML UDC PO SCH (09:48)
[2023-09-12 14:09] VITALS: BP 129/61; O2SAT 91
--- NOTE | 2023-09-13 07:47 | DISCHARGE SUMMARY ---
"Discharge Summary Admit Date: 09/10/23 Discharge Date: 09/12/23 Discharging Provider: Maggie Rao MD Primary Care Provider: Daniel Graff MD Code Status: Do Not Attempt Resuscitation Condition at Discharge: Fair Discharge Disposition: 01 Home, Self Care - DIAGNOSES Discharge Diagnoses with Status of Each Condition: 1. Acute hypoxemic respiratory failure 2. COPD with exacerbation 3. Rhinovirus infection 4. Chronic iron deficiency anemia 5. Crohn's disease with diarrhea 7. Nonsustained V. tach 8. Benign hypertension with stage IIIb chronic kidney disease - HPI History of Present Illness: 78M c tobacco abuse, COPD, hypertension p/w SOB for the past couple of days. Patient is alert and oriented. He has capacity to make decisions. Patient was reluctant in coming into the hospital and had initially declined hospitalization. He reports not on oxygen at home. No recent fever. No chest pain. He developed sudden SOB x 2 days. He lives with Clint. He has not living family members. Clint called EMS because patient could not breathe. Patient was brought into the ED and noted hypoxemic. He was test positive for viral URI. CXR did not show overt infiltrate but noted emphysematous changes. He was given abx. He was noted runs of NSVT. Patient declined any life saving measures. He did not want cardioversion. No intubation. Patient states he still smokes tobacco. - Past Medical History Cardiovascular: reports: Hypertension, Coronary artery disease Respiratory: reports: None Neuro: reports: None Endocrine/Autoimmune: reports: None GI: reports: Crohn's disease : reports: None HEENT: reports: None Psych: reports: None Musculoskeletal: reports: None Derm: reports: None MRSA Hx?: No - Past Surgical History General: reports: Other Cardiovascular: reports: AAA, Other HEENT: reports: Tonsil/Adenoidectomy - CONSULTS | PROCEDURES Procedures: Chest x-ray with questionable appearance of bronchial wall thickening representing reactive airspace disease Blood cultures negative after 2 days Final respiratory culture growing normal respiratory hci - HOSPITAL COURSE Hospital Course: (1) Acute hypoxemic respiratory failure Impression: To be due to COPD exacerbation and that is secondary to rhinovirus. Patient was on albuterol as needed, DuoNeb 3 times a day, antibiotics, and prednisone p.o. Hypoxia improved quickly. He went down to 1 L nasal cannula the day before discharge and did not need any oxygen on the day of discharge.To desat test done and confirmed that even with ambulation he did not need to go home with oxygen. (2) COPD exacerbation Impression: As listed in problem #1. He had 3 doses of steroids. Quick turnaround time with exacerbation and he improved. Greatest wishes to leave here and go smoke. I have given him a nicotine patch. But he says is not enough and he wants to go smoke. I was apologetic but he cannot smoke care. (3) Chronic anemia Impression: This gentleman has Crohn's disease. Chronic intermittent loose bowels. In looking at the electronic medical record his hemoglobin is usually between 10.0 and 10.7. Rarely is he is at 11. He is cachectic which indicates that he may be having malabsorption. I did an iron panel and his iron is 13, TIBC is 168, TIBC 8, and percent saturation 120. Vitamin B12 is normal at 448. TSH normal at 1.15. Total protein is 5.7. Albumin 2.1.Hemoglobin on admission was 9.9, he is 7.9 now. He received INFeD 1500 mg IV piggyback x 1 I do not know how much is malabsorption can be treated in the outpatient setting. I like him to follow-up with his primary care provider and make sure he takes a vitamin for all of the B's, and an iron tablet on a regular basis. However if he is not absorbing he would be candidate for IM B12 and a monthly iron infusion. I do not know if he would agree to that. He is quite a colorful, cantankerous elderly gentleman Since his hemoglobin is dropped below 8, and he is hypoxic, I transfused 1 unit of packed cells (4) Crohn disease Impression: Started on Lomotil prn. Has had some slowing of chronic intermittent loose stool Resume Imuran in the outpatient setting Qualifiers: Gastrointestinal tract location: unspecified location (5) Nonsustained ventricular tachycardia Impression: He was loaded with IV amiodarone on admission. Unable to get an echo during this admission. Previous records show his ejection fraction to be normal. He will be discharged on p.o. amiodarone and to follow-up with his primary care provider to see if he needs an echo, or change in medication for the nonsustained V. tach Examination at discharge showed him to have a temperature of 37. Heart rate 88. Blood pressure 129/61. Respirations 18. 91% on room air at rest. And remained 91% with exertion. He is 5 foot 11 inches tall, 62 kg and gives an appearance of cachexia. Bilateral temporal wasting. Shotty neck adenopathy. Coarse upper airway sounds but no wheezing, crackles or rhonchi. He is still producing quite a bit of thick hay phlegm. Regular rate and rhythm with a systolic ejection murmur. Abdomen that soft and nontender with normal bowel sounds. His last bowel movement was September 11. Extremities have quite a bit of muscle wasting. No edema. He is oriented to person, place, time and situation but can be very forgetful. Quite cranky. He was agitating to go home from day 1. It took a lot of cajoling and charming him to get him to stay. Once he was no longer requiring oxygen I felt he was stable for discharge. Greater than 30 minutes was spent coordinating discharge This document was made in part using voice recognition software. While efforts are made to proofread this document, sound alike and grammatical errors may occur. - ALLERGIES Allergies/Adverse Reactions: Allergies Allergy/AdvReac Type Severity Reaction Status Date / Time No Known Drug Allergies Allergy Verified 09/10/23 02:39 - MEDICATIONS Home Medications: Ambulatory Orders Medication Instructions Recorded Confirmed Gabapentin [Neurontin] 100 mg PO TID PRN 09/10/23 09/10/23 Potassium Chloride 20 meq PO BIDWM 09/10/23 09/10/23 azaTHIOprine [Imuran] 50 mg PO DAILY 09/10/23 09/10/23 Amiodarone [Pacerone] 200 mg PO DAILY #30 tab 09/12/23 Multivitamin W/Minerals [Theragran 1 tab PO DAILYWM tab 09/12/23 M] levoFLOXacin [Levaquin] 500 mg PO QD #6 tablet 09/12/23 - LABS Result Diagrams: 09/12/23 08:15 09/12/23 08:15"
== END 2023-09-12 13:35 | disposition home or self-care (01) | DRG 189 ==
LOC: ED 02:25 → ICU 04:47
PROVIDERS: ADMIT Internal Medicine; ATTEND Specialist
PROC: 30233N1 Transfusion of Nonautologous Red Blood Cells into Peripheral Vein, Percutaneous Approach (ICD-10-PCS; principal; 2023-09-11)
DX: J96.01 Acute respiratory failure with hypoxia (principal); J44.1 Chronic obstructive pulmonary disease with (acute) exacerbation; R05.9 Cough, unspecified; R06.02 Shortness of breath; K50.90 Crohn's disease, unspecified, without complications; D72.829 Elevated white blood cell count, unspecified; D63.1 Anemia in chronic kidney disease; I47.20 Ventricular tachycardia, unspecified; N18.9 Chronic kidney disease, unspecified; D50.9 Iron deficiency anemia, unspecified; I12.9 Hypertensive chronic kidney disease with stage 1 through stage 4 chronic kidney disease, or unspecified chronic kidney disease; N18.32 Chronic kidney disease, stage 3b; I25.10 Atherosclerotic heart disease of native coronary artery without angina pectoris; J00 Acute nasopharyngitis [common cold]; F17.200 Nicotine dependence, unspecified, uncomplicated; Z66 Do not resuscitate; Z79.899 Other long term (current) drug therapy
CPT/HCPCS: 36415; 71045; 80048; 80051; 80053; 82330; 82607; 82803; 83540; 83605; 83615; 83690; 83735; 83880; 84100; 84132; 84443; 84466; 84484; 85025; 85027; 85045; 86850; 86900; 86901; 86920; 87040; 87070; 87150; 87205; 87633; 93005; 94640; 94660; 94761; 96365; 96368; 96375; 99285; A9270; J0282; J1750; J3370; J7512; P9016; 87280